=== PATIENT | male | born 1970 | race Caucasian/White ===

== ENCOUNTER 2019-11-09 12:42 | Emergency (ER) | payer MEDICARE, OTHER, SELFPAY ==
--- NOTE | 2019-11-09 12:53 | ED.URI ---
HPI - URI/Sore Throat General Chief Complaint: Headache Stated Complaint: flu symptoms [id number] Time Seen by Provider: 11/09/19 12:51 Source: patient Mode of arrival: ambulatory Limitations: no limitations History of Present Illness MD elicited complaint: fever, cough and rhinorrhea Onset (ago): day(s) (5) Consistency: constant Severity: moderate Description of mucous: clear Able to tolerate fluids by mouth: Yes Exacerbating factors: nothing Relieving factors: nothing Context: sick contacts (partner with similar illness) Associated symptoms: fever, chills and myalgias Treatments prior to arrival: none Related Data Allergies Allergy/AdvReac Type Severity Reaction Status Date / Time ibuprofen [From MOTRIN] Allergy Severe ANAPHYLAXIS Unverified 10/24/19 17:07 Review of Systems Review of Systems: Constitutional : positive Fever, positive Chills, positive fatigue, positive Malaise ENT/Mouth : no sore throat, positive runny nose Eyes: No Discharge Cardiovascular : No Chest Pain, No SOB Respiratory : positive Cough, No Sputum Gastrointestinal : No Nausea, No Vomiting, No Diarrhea Genitourinary : No Dysuria, No Urinary Frequency Musculoskeletal : positive Myalgia Skin : No rash Neuro : No Headache PMFSH Past Medical History Attestation statement: The following information was validated with the patient. Medical History (Updated 11/09/19 @ 12:54 by Felicita Aparicio DO) HTN (hypertension) Social History Social History (Updated 11/09/19 @ 12:54 by Felicita Aparicio DO) Smoking Status: Current every day smoker Use of substances other than those prescribed or required for medical reasons: No Physical Exam Vital Signs and I&O and Narrative: Vital Signs and I&O: Appearance: Alert. Oriented X3. No acute distress. Eyes: Pupils equal, round and reactive to light. Neck: Normal inspection. Neck supple. CVS: Normal heart rate and rhythm. Pulses normal. Respiratory: No respiratory distress. Breath sounds normal. Abdomen: Soft and nontender. Skin: Skin warm and dry. Normal skin color. Normal skin turgor. Extremities: No lower extremity edema. Neuro: Oriented X 3. No motor deficit. No sensory deficit. MDM - URI/Sore Throat MDM Narrative Medical decision making narrative: not toxic, well hydrated, no hypoxia, clear lungs here with viral syndrome and loss of taste COVID test ordered, given precautions to return Discharge Plan Discharge Clinical Impression: Viral syndrome Patient Disposition: Home, Self-Care Instructions: COVID-19 (Coronavirus Disease 2019) (ED) Additional Instructions: you were tested for COVID we will call you with results in 2 to 4 days, wear a mask, socially distance
[2019-11-09 13:25] VITALS: BP 156/78; PULSE 57; RESP 20; TEMP 36.6; O2SAT 99; BMI 25.9
== END 2019-11-09 13:47 | disposition home or self-care (01) ==
PROVIDERS: Emergency Provider Emergency Medicine
DX: B34.9 Viral infection, unspecified (principal); Z20.828 Contact with and (suspected) exposure to other viral communicable diseases; I10 Essential (primary) hypertension; F17.200 Nicotine dependence, unspecified, uncomplicated
CPT/HCPCS: 36415; 87635; 99283; 99284

== ENCOUNTER 2020-04-13 13:10 | Emergency (ER) | payer MEDICARE, OTHER, SELFPAY ==
--- NOTE | ~2020-04-13 | XR_ITS ---
EXAMINATION: XR FOOT, LEFT CLINICAL INFORMATION: Trauma. Mild swelling. COMPARISON: None TECHNIQUE: AP, lateral, and oblique views of the left foot. FINDINGS: There is a nondisplaced fracture of the shaft of the fifth digit proximal interphalangeal joint. No definite intra-articular extension, although this is difficult to exclude given the lack of displacement. Alignment maintained. Joint spaces are maintained. XR/XR foot LT min 3V IMPRESSION: Nondisplaced fracture of the fifth digit proximal phalanx.
[2020-04-13 13:23] VITALS: BP 158/90; PULSE 89; RESP 16; TEMP 37.2; O2SAT 98; BMI 25.8
--- NOTE | 2020-04-13 15:30 | ED.LOWEXIN ---
HPI - Extremity Injury (Lower) General Chief Complaint: Extremity Injury, Lower Stated Complaint: foot injury Time Seen by Provider: 04/13/20 15:28 Source: patient Mode of arrival: ambulatory Limitations: no limitations History of Present Illness HPI Narrative: 50 y/o male presenting with left pinky toe pain that started 3 weeks ago when he accidentally kicked a piece of furniture. He states he has been using ice and taking OTC pain meds without improvement. Pain is worse when he walks on it all day and when he puts his big leather boots on to go ride his motorcycle. He accidentally kicked another piece of furniture 4 days ago and the pain worsened. He is now walking with a limp and he is having soreness in his lower leg and knee. No trauma to lower leg or knee. MD complaint: foot injury Onset (ago): week(s) Injury: Left: toes (5th toe) Type of Injury: blunt Place: home Severity: severe Relieving factors: NSAID, cold therapy, immobilization and rest Exacerbating factors: weight bearing, movement and palpation Context: direct blow Associated symptoms: swelling and able to partially bear weight Other symptoms: none Related Data Allergies Allergy/AdvReac Type Severity Reaction Status Date / Time ibuprofen [From MOTRIN] Allergy Severe ANAPHYLAXIS Verified 04/13/20 13:27 Review of Systems Review of Systems: Constitutional: No Fever, No Chills Cardiovascular: No Chest Pain, No SOB Respiratory: No Cough Musculoskeletal: + joint pain, + Myalgias Skin: No Skin Lesions, No rash Neuro: No Weakness, No Numbness Heme/Lymph: No Bruising PMFSH Past Medical History Attestation statement: The following information was validated with the patient. Medical History HTN (hypertension) Social History Social History (Updated 11/09/19 @ 12:54 by Felicita Aparicio DO) Alcohol intake: unknown Smoking Status: Current every day smoker Advance Directives: No Advance Directives Information Provided: No Physical Exam Vital Signs: Vital Signs: Last Vital Signs Temp 99.0 F 04/13/20 13:23 Pulse 89 04/13/20 13:23 Resp 16 04/13/20 13:23 BP 158/90 H 04/13/20 13:23 Pulse Ox 98 04/13/20 13:23 Body Mass Index 25.8 Appearance: Alert. Oriented X3. No acute distress. HEENT: normal inspection CVS: Normal heart rate and rhythm. Pulses normal. Respiratory: No respiratory distress. Skin: Skin warm and dry. Normal skin color. Normal skin turgor. No rashes. Extremities: normal inspection of left foot, tender 5th toe without ecchymosis, or deformity, full ROM, NV intact distally. no calf tenderness on the left. normal left knee inspection, nontender. full ROM Neuro: Oriented X 3. No motor deficit. No sensory deficit. Ambulates with slight limp Course Course Course Narrative: 50 y/o male with blut trauma to left 5th toe x2 in the last 3 weeks. XR pending Reevaluation(s) Reevaluation #1: XR showing - Nondisplaced fracture of the fifth digit proximal phalanx. will place in post-op boot. patient has been counseled on management, will refer to ortho prn. Discharge Plan Discharge Clinical Impression: Fracture of toe Qualifiers: Encounter type: initial encounter Toe: lesser toe Fracture type: closed Phalanx: proximal Fracture alignment: nondisplaced Laterality: left Qualified Code(s): S92.515A - Nondisplaced fracture of proximal phalanx of left lesser toe(s), initial encounter for closed fracture Patient Disposition: Home, Self-Care Instructions: Toe Fracture (ED) Additional Instructions: Wear the post-op shoe to allow your toe to heal. You may bear weight as tolerated. Do not wear tight shoes or boots. Take Motrin and/or Tylenol as needed for pain. Follow up with Orthopedics. Follow up with your doctor as needed. Referrals: Umair Allison MD [Physician] - 1 week (Nondisplaced fracture of the fifth digit proximal phalanx with delayed healing) Stand Alone Forms: Work/School Release
== END 2020-04-13 16:20 | disposition home or self-care (01) ==
PROVIDERS: Emergency Provider Emergency Medicine
DX: S92.515A Nondisplaced fracture of proximal phalanx of left lesser toe(s), initial encounter for closed fracture (principal); W22.03XA Walked into furniture, initial encounter; Y93.89 Activity, other specified; Y92.013 Bedroom of single-family (private) house as the place of occurrence of the external cause; Y99.9 Unspecified external cause status
CPT/HCPCS: 73630; 99283

== ENCOUNTER 2020-06-05 19:46 | Emergency (ER) | payer MEDICARE, OTHER, SELFPAY ==
--- NOTE | ~2020-06-05 | XR_ITS ---
EXAMINATION: XR CHEST CLINICAL INFORMATION: Status post Covid with worsening shortness of breath COMPARISON: 02/25/2016 TECHNIQUE: Frontal view of the chest was obtained. FINDINGS: Compared to the prior study there's been little significant interval change. The heart size is normal. No infiltrates, effusions or lung masses are seen. XR/XR chest 1V IMPRESSION: No acute intrathoracic disease.
--- NOTE | ~2020-06-05 | CT_ITS ---
EXAMINATION: CT ANGIOGRAM OF THE CHEST WITH AND WITHOUT CONTRAST (CT PULMONARY ANGIOGRAM FOR PE) CLINICAL INFORMATION: Reason for Exam SOB, s/p Covid, L cp, elevated dimer COMPARISON: Chest x-ray 06/05/2020 TECHNIQUE: Prior to contrast administration, noncontrast localization images were obtained. Subsequently, multidetector volumetric imaging was performed from the thoracic inlet to below the diaphragms following the administration of 65 mL Omnipaque 350 intravenous contrast. No contrast reaction reported Sagittal, coronal, and MIP oblique sagittal reformatted images were obtained on the CT workstation, uploaded to PACS, and reviewed. This CT examination was performed using dose optimization techniques as appropriate, variously including the following: *Automated exposure control *Adjustment of mA and/or kV according to patient size (this includes techniques or standardized protocols for targeted exams where dose is matched to indication/reason for exam; i.e. extremities or head) *Use of iterative reconstruction technique Total exam dose-length product 312 mGy-cm FINDINGS: QUALITY OF STUDY/CONTRAST BOLUS: Satisfactory. PULMONARY ARTERIES: No central or segmental pulmonary emboli. THORACIC AORTA: No aneurysm or dissection. LUNG: Marked emphysematous changes of lungs. No acute airways disease. No suspicious lung nodules. No interstitial lung disease. PLEURA: No pleural effusion or pneumothorax. MEDIASTINUM: Normal heart size. No pericardial effusion. No hilar or mediastinal lymphadenopathy. No evidence of septal bowing or right heart strain. The thyroid is unremarkable. CHEST WALL/AXILLA: No axillary or internal mammary lymphadenopathy. OSSEOUS STRUCTURES: No acute or suspicious osseous abnormality. UPPER ABDOMEN: Unremarkable. No reflux of contrast into the hepatic veins to suggest elevated right heart pressures. CT/CT angio chest PE protocol IMPRESSION: 1. No evidence of pulmonary embolism. 2. Marked emphysematous change of lungs. No acute airways disease. VTE: negative
[2020-06-05 20:27] VITALS: BP 132/70; PULSE 79; RESP 18; TEMP 37.4; O2SAT 96; BMI 26.6
--- NOTE | 2020-06-05 21:02 | ECG_ITS ---
Test Reason : SOB Blood Pressure : / mmHG Vent. Rate : 068 BPM Atrial Rate : 068 BPM P-R Int : 154 ms QRS Dur : 094 ms QT Int : 384 ms P-R-T Axes : 060 018 055 degrees QTc Int : 408 ms Normal sinus rhythm Cannot rule out Anterior infarct , age undetermined Abnormal ECG No previous ECGs available Referred By: Brissa Hassan Electronically Signed By:GIOVANNA MCDANIEL MD
--- NOTE | 2020-06-05 21:05 | ED_ITS ---
HPI - SOB/Dyspnea General Chief Complaint: Dyspnea Stated Complaint: SOB Time Seen by Provider: 06/05/20 20:51 Source: patient Mode of arrival: ambulatory Limitations: no limitations History of Present Illness HPI Narrative: Patient comes to emergency room complaining of shortness of breath. Patient states it has been 2 weeks since he was diagnosed with COVID- 19. Patient states that in the last couple of days, he has noticed that his breathing has become more labored, feels short of breath, and now also compla ining of bilateral back pain. Patient states he has been coughing, yesterday had multiple episodes of vomiting, no diarrhea. Patient denies any previous history of COPD or asthma. Patient denies chest pain, no abdominal pain. MD elicited complaint: shortness of breath Related Data Allergies Allergy/AdvReac Type Severity Reaction Status Date / Time ibuprofen [From MOTRIN] Allergy Severe ANAPHYLAXIS Verified 06/05/20 20:26 Review of Systems Review of Systems: Constitutional : No Weight loss, No Fever, No Chills, No Night Sweats, complaining of fatigue ENT/Mouth : No Hearing loss, No Ear Pain but complaining of ear fullness on the left side, mild Nasal Congestion, No Sinus Pain, No Hoarseness, No sore throat, No Rhinorrhea, No Swallowing Difficulty Eyes: No Eye Pain, No Swelling, No Redness, No Foreign Body, No Discharge, No Vision Changes Cardiovascular : Left-sided chest pain, No SOB, complaining of constant shortness of breath No Orthopnea, No Edema, No Palpitations Respiratory : Complaining of Cough with mild Sputum, No Wheezing, No Smoke Exposure, complaining of dyspnea Gastrointestinal : No Nausea, yesterday had multiple episodes of vomiting, No Diarrhea, No Constipation, No abdominal Pain, No Hematochezia, No Melena Genitourinary : no irregular bleeding, No Dysuria, No Urinary Frequency, No Dwain turia, No Urinary Incontinence, No Urgency, No Flank Pain, No Urinary Flow Changes, No Hesitancy Musculoskeletal : No joint pain, No Myalgias, No Joint Swelling Skin : No Skin Lesions, No rash Neuro : No Weakness, No Numbness, No Paresthesias, No Loss of Consciousness, No Dizziness, No Headache Psych : No Anxiety/Panic, No Depression, No SI/HI/AH/VH, No Social Issues, Heme/Lymph: No Bruising, No Bleeding,No Lymphadenopathy Endocrine : No Polyuria, No Polydipsia, No Temperature Intolerance [facility] Past Medical History Medical History HTN (hypertension) Social History Social History (Updated 11/09/19 @ 12:54 by Felicita Aparicio DO) Alcohol intake: unknown Smoking Status: Current every day smoker Advance Directives: No Advance Directives Information Provided: No Physical Exam Vital Signs: Vital Signs: Last Vital Signs Temp 98.6 F 06/05/20 21:30 Pulse 66 06/06/20 00:15 Resp 17 06/06/20 00:15 BP 139/82 06/06/20 00:15 Pulse Ox 97 06/06/20 00:15 Body Mass Index 26.6 Appearance: Alert. Oriented X3. No acute distress. Eyes: Pupils equal, round and reactive to light. ENT: Pharynx normal. Normal tympanic membranes bilaterally, no fluid or erythema. Neck: Normal inspection. Neck supple. No lymph nodes noted. No crepitus CVS: Normal heart rate and rhythm. Pulses normal. Normal S1 and S2 Respiratory: No respiratory distress. Breath sounds normal. No Wheezing. No rales Abdomen: Soft and nontender. No rigidity. No distention. good BS x4 Skin: Skin warm and dry. Normal skin color. Normal skin turgor. Extremities: No lower extremity edema. No lower extremity edema. No Lacerations. No Rash Neuro: Oriented X 3. No motor deficit. No sensory deficit. Moving all extermities. No slurred speech. Course Course Course Narrative: I discussed with the patient that his chest x-ray is normal, however his D-dimer is elevated and his symptoms are concerning for a PE. CT scan for PE pending. PE study negative for PE. Patient was ambulated, oxygen saturation 96% and above, no shortness of breath. Patient's pain likely secondary to pleurisy. MDM - SOB/Dyspnea Lab Data Result diagrams: 06/05/20 21:24 06/05/20 21:24 Labs: Lab Results 06/05/20 06/05/20 06/05/20 Range/Units 21:24 21:24 21:24 WBC 11.8 H (4.8-10.8) X10*3/uL RBC 4.51 L (4.60-5.80) X10*6/uL Hgb 13.8 L (14.0-18.0) g/dl Hct 40.5 L (42-52) % MCV 89.8 (80-98) fL MCH 30.6 (27.0-33.0) pg MCHC 34.1 (31.0-36.0) g/dl RDW 12.3 (11.0-16.0) % Plt Count 181 (160-400) X10*3/uL MPV 12.7 H (9.4-12.4) fL Immature Gran % (Auto) 0.7 H (0.0-0.4) % Neut % (Auto) 54.9 (45-73) % Lymph % (Auto) 30.0 (20-40) % [place] % (Auto) 10.9 (2-11) % Eos % (Auto) 3.0 (0-4) % Baso % (Auto) 0.5 (0-2) % Lymph # (Auto) 3.5 (1.2-4.9) X10*3/uL [place] # (Auto) 1.3 H (0.1-1.2) X10*3/uL Eos # (Auto) 0.4 (0.0-0.4) X10*3/uL Baso # (Auto) 0.1 (0.0-0.2) X10*3/uL Abs Immat Gran (auto) 0.08 H (0.00-0.03) X10*3/uL Absolute Neuts (auto) 6.5 (2.0-8.3) X10*3/uL Absolute Nucleated RBC 0.000 (0.0-0.012) X10*3/uL Nucleated RBC % (auto) 0.0 (0.0-0.2) /100WBC D-Dimer 683 NG/ML Sodium 138 (135-145) mmol/L Potassium 3.7 (3.3-5.1) mmol/L Chloride 104 (96-108) mmol/L Carbon Dioxide 24 (22-29) mmol/L Anion Gap 14 (12-20) BUN 11 (9-16) mg/dL Creatinine 1.03 (0.5-1.4) mg/dL Estim Creat Clear Calc 80.2 Estimated GFR > 60 Random Glucose 181 H (60-115) mg/dL Calcium 9.0 (8.4-10.2) mg/dL Total Bilirubin 0.6 (0.0-1.0) mg/dL Direct Bilirubin 0.2 (0.0-0.5) mg/dL AST 7 (5-37) U/L ALT 12 (0-40) U/L Alkaline Phosphatase 59 (39-117) U/L Troponin I High Sens (<3.5-35.0) ng/L B-Natriuretic Peptide (<100) pg/mL Total Protein 6.9 (6.5-8.0) g/dL Albumin 3.9 (3.5-5.0) g/dL Urine Color Urine Appearance Urine pH (5.0-8.0) Ur Specific [place] (1.005-1.025) Urine Protein (NEG-TRACE) MG/DL Urine Glucose (UA) (NEG) MG/DL Urine Ketones (NEG) MG/DL Urine Blood (NEG) Urine Nitrite (NEG) Ur Leukocyte Esterase (NEG) Urine RBC (0) /HPF Urine WBC (0-4) /HPF Ur Squamous Epith Cells /LPF Urine Bacteria /LPF Urine Mucus /LPF Coronavirus (PCR) (Negative) Influenza Type A (PCR) (Negative) Influenza Type B (PCR) (Negative) RSV RNA Qual (PCR) (Negative) 06/05/20 06/05/20 06/05/20 Range/Units 21:24 21:24 23:07 WBC (4.8-10.8) X10*3/uL RBC (4.60-5.80) X10*6/uL Hgb (14.0-18.0) g/dl Hct (42-52) % MCV (80-98) fL MCH (27.0-33.0) pg MCHC (31.0-36.0) g/dl RDW (11.0-16.0) % Plt Count (160-400) X10*3/uL MPV (9.4-12.4) fL Immature Gran % (Auto) (0.0-0.4) % Neut % (Auto) (45-73) % Lymph % (Auto) (20-40) % [place] % (Auto) (2-11) % Eos % (Auto) (0-4) % Baso % (Auto) (0-2) % Lymph # (Auto) (1.2-4.9) X10*3/uL [place] # (Auto) (0.1-1.2) X10*3/uL Eos # (Auto) (0.0-0.4) X10*3/uL Baso # (Auto) (0.0-0.2) X10*3/uL Abs Immat Gran (auto) (0.00-0.03) X10*3/uL Absolute Neuts (auto) (2.0-8.3) X10*3/uL Absolute Nucleated RBC (0.0-0.012) X10*3/uL Nucleated RBC % (auto) (0.0-0.2) /100WBC D-Dimer NG/ML Sodium (135-145) mmol/L Potassium (3.3-5.1) mmol/L Chloride (96-108) mmol/L Carbon Dioxide (22-29) mmol/L Anion Gap (12-20) BUN (9-16) mg/dL Creatinine (0.5-1.4) mg/dL Estim Creat Clear Calc Estimated GFR Random Glucose (60-115) mg/dL Calcium (8.4-10.2) mg/dL Total Bilirubin (0.0-1.0) mg/dL Direct Bilirubin (0.0-0.5) mg/dL AST (5-37) U/L ALT (0-40) U/L Alkaline Phosphatase (39-117) U/L Troponin I High Sens < 3.5 (<3.5-35.0) ng/L B-Natriuretic Peptide 26 (<100) pg/mL Total Protein (6.5-8.0) g/dL Albumin (3.5-5.0) g/dL Urine Color MANDO Urine Appearance CLEAR Urine pH 5.5 (5.0-8.0) Ur Specific [place] >= 1.030 H (1.005-1.025) Urine Protein 1+ H (NEG-TRACE) MG/DL Urine Glucose (UA) NEG (NEG) MG/DL Urine Ketones 5 (NEG) MG/DL Urine Blood NEG (NEG) Urine Nitrite NEG (NEG) Ur Leukocyte Esterase NEG (NEG) Urine RBC 0 (0) /HPF Urine WBC 0-2 (0-4) /HPF Ur Squamous Epith Cells 1+ /LPF Urine Bacteria NONE /LPF Urine Mucus 2+ /LPF Coronavirus (PCR) POSITIVE A (Negative) Influenza Type A (PCR) NEGATIVE (Negative) Influenza Type B (PCR) NEGATIVE (Negative) RSV RNA Qual (PCR) NEGATIVE (Negative) Imaging Data Chest x-ray: Radiologist's impression: Compared to the prior study there's been little significant interval change. The heart size is normal. No infiltrates, effusions or lung masses are seen. XR/XR chest 1V IMPRESSION: No acute intrathoracic disease. CTA for PE: Radiologist's impression: FINDINGS: QUALITY OF STUDY/CONTRAST BOLUS: Satisfactory. PULMONARY ARTERIES: No central or segmental pulmonary emboli. THORACIC AORTA: No aneurysm or dissection. LUNG: Marked emphysematous changes of lungs. No acute airways disease. No suspicious lung nodules. No interstitial lung disease. PLEURA: No pleural effusion or pneumothorax. MEDIASTINUM: Normal heart size. No pericardial effusion. No hilar or mediastinal lymphadenopathy. No evidence of septal bowing or right heart strain. The thyroid is unremarkable. CHEST WALL/AXILLA: No axillary or internal mammary lymphadenopathy. OSSEOUS STRUCTURES: No acute or suspicious osseous abnormality. UPPER ABDOMEN: Unremarkable. No reflux of contrast into the hepatic veins to suggest elevated right heart pressures. CT/CT angio chest PE protocol IMPRESSION: 1. No evidence of pulmonary embolism. 2. Marked emphysematous change of lungs. No acute airways disease. VTE: negative Discharge Plan Discharge Clinical Impression: Pleurisy Patient Disposition: Home, Self-Care Instructions: Pleurisy (ED) Additional Instructions: Please follow-up with your primary care physician. On CT scan it was noted that you have emphysema. He will likely need pulmonary function tests to diagnosed COPD. Please follow-up with your primary care physician tomorrow. If you have any worsening or new symptoms, please return to the emergency room or call 911
[2020-06-05 21:30] VITALS: BP 132/61; PULSE 66; RESP 16; TEMP 37; O2SAT 96
[2020-06-05 21:33] LABS: Basophils Absolute Auto 0.1 X10*3/uL (0.0-0.2); Basophils Percent Auto 0.5 % (0-2); Eosinophils Absolute Auto 0.4 X10*3/uL (0.0-0.4); Hematocrit 40.5 % (42-52); Hemoglobin 13.8 g/dl (14.0-18.0); Imm Gran Abs Auto 0.08 X10*3/uL (0.00-0.03); Imm Gran Pct Auto 0.7 % (0.0-0.4); Lymphocytes Absolute Auto 3.5 X10*3/uL (1.2-4.9); MANUAL DIFF FLAG NO; Mean Corpuscular HGB Conc 34.1 g/dl (31.0-36.0); Mean Corpuscular Hemoglobin 30.6 pg (27.0-33.0); Mean Corpuscular Volume 89.8 fL (80-98); Mean Platelet Volume 12.7 fL (9.4-12.4); Monocytes Absolute Auto 1.3 X10*3/uL (0.1-1.2); Monocytes Percent Auto 10.9 % (2-11); Neutrophils Absolute Auto 6.5 X10*3/uL (2.0-8.3); Neutrophils Percent Auto 54.9 % (45-73); Platelet Count 181 X10*3/uL (160-400); Red Blood Count 4.51 X10*6/uL (4.60-5.80); Red Cell Distribution Width 12.3 % (11.0-16.0); White Blood Count 11.8 X10*3/uL (4.8-10.8)
[2020-06-05 21:42] LABS: D Dimer 683 NG/ML
[2020-06-05 22:09] LABS: Alanine Aminotransferase 12 U/L (0-40); Albumin Level 3.9 g/dL (3.5-5.0); Alkaline Phosphatase 59 U/L (39-117); Anion Gap 14 (12-20); Aspartate Amino Transferase 7 U/L (5-37); Bilirubin Direct 0.2 mg/dL (0.0-0.5); Bilirubin Total 0.6 mg/dL (0.0-1.0); Blood Urea Nitrogen 11 mg/dL (9-16); Carbon Dioxide 24 mmol/L (22-29); Chloride 104 mmol/L (96-108); Creatinine Clr Calc Pharmacy 80.2; Estimated Glomerular Filt Rate > 60; Glucose Random 181 mg/dL (60-115); Potassium 3.7 mmol/L (3.3-5.1); Sodium 138 mmol/L (135-145); Total Protein 6.9 g/dL (6.5-8.0)
[2020-06-05 22:11] LABS: B Type Natriuretic Peptide 26 pg/mL (<100); Troponin-I High Sensitivity < 3.5 ng/L (<3.5-35.0)
[2020-06-05 22:16] LABS: Influenza A PCR NEGATIVE (Negative); Influenza B PCR NEGATIVE (Negative); Resp Syncy Virus RNA Qual PCR NEGATIVE (Negative)
[2020-06-05 22:24] LABS: SARS COV2 PCR INHOUSE POSITIVE (Negative)
[2020-06-05 23:19] LABS: Appearance Urine CLEAR; Color Urine AMBER; Glucose Urine UA NEG (NEG); Leukocyte Esterase Urine NEG (NEG); Nitrite Urine NEG (NEG); PH 5.5 (5.0-8.0); Specific Gravity - Urine >= 1.030 (1.005-1.025); Urine Blood NEG (NEG); Urine Ketones 5 MG/DL (NEG); Urine Protein 1+ MG/DL (NEG-TRACE)
[2020-06-05 23:24] LABS: Mucus Urine 2+ /LPF; RBC Urine 0 /HPF (0); Squamous Epithelial Cell Urine 1+ /LPF; WBC Urine 0-2 /HPF (0-4)
[2020-06-05] MEDS: iohexoL 350 MG/ML 100 ML INFUS..BTL IV (23:25)
[2020-06-06 00:15] VITALS: BP 139/82; PULSE 66; RESP 17; O2SAT 97
--- NOTE | 2020-06-06 00:21 | PC.NURSE ---
PT AMBULATORY IN HALLWAY, DENIES DYSPNEA AND SPO2 NEVER DROPPED BELOW 96%.
== END 2020-06-06 01:19 | disposition home or self-care (01) ==
PROVIDERS: Emergency Provider Emergency Medicine
DX: R09.1 Pleurisy (principal); Z20.822 Contact with and (suspected) exposure to COVID-19; R11.10 Vomiting, unspecified; J43.9 Emphysema, unspecified
CPT/HCPCS: 0241U; 36415; 71045; 71275; 80048; 80076; 81001; 83880; 84484; 85025; 85379; 93005; 99284; Q9967

== ENCOUNTER 2020-07-16 15:48 | Observation (INO) | payer MEDICARE, OTHER, SELFPAY ==
--- NOTE | 2020-07-16 | ECG_ITS ---
Test Reason : DIZZINESS Blood Pressure : / mmHG Vent. Rate : 075 BPM Atrial Rate : 075 BPM P-R Int : 148 ms QRS Dur : 094 ms QT Int : 382 ms P-R-T Axes : 036 011 057 degrees QTc Int : 426 ms Normal sinus rhythm Normal ECG When compared with ECG of 05-JUN-2020 21:25, No significant change was found Referred By: Generic ED Physician Electronically Signed By:GIOVANNA MCDANIEL MD
--- NOTE | ~2020-07-16 | CT_ITS ---
EXAMINATION: CT ANGIOGRAM NECK AND HEAD CLINICAL INFORMATION: Right facial numbness, right arm weakness, now resolved COMPARISON: None. TECHNIQUE: Initial noncontrast head CT was performed. Test bolus sequences followed by intravenous administration 70 mL of Omnipaque 350. Helical imaging was performed in the axial plane from the thoracic inlet to the skull vertex. Delayed postcontrast imaging of the head was also performed. The data was processed at the nuclear cardiology technologist's workstation for generation of MIP sequences. Angled MIPs and volume rendered reformatted images were also generated at an offline 3D workstation. Stenoses are assessed in accordance with NASCET criteria unless otherwise indicated. DOSE LOWERING TECHNIQUES: This CT examination was performed using dose optimization techniques as appropriate, variously including the following: - Automated exposure control - Adjustment of mA and/or kV according to patient size (this includes techniques or standardized protocols for targeted exams were dose is matched to indication/reason for exam; i.e. extremities or head) - Use of iterative reconstruction technique DLP: 2478 mGy-cm FINDINGS: Neck CTA: There is a classic 3 vessel branching pattern of the aortic arch. Mild calcification along the aortic arch. No significant stenosis at the branch origins. The proximal right vertebral artery appears diminutive, before receiving collateral flow in the common larger in caliber at the level of C4-C5. There is moderate narrowing of the right vertebral artery at C4-C5 in the region of facet arthropathy. The left vertebral artery is dominant and widely patent along its cervical course. Both vertebral arteries are widely patent throughout their extracranial cervical course. There are mild calcifications at the bilateral common carotid artery bifurcations without significant stenosis. There are also calcifications along the proximal right and left internal carotid arteries resulting in less than 50% luminal narrowing. Remainder of the internal carotid arteries are widely patent. Brain CTA: The intradural vertebral arteries are patent, and the left vertebral artery is dominant. Right vertebral artery appears to end in PICA. The basilar artery and superior cerebellar arteries are patent. Bilateral posterior cerebral arteries are patent. Normal appearance of the intradural internal carotid arteries without focal stenosis. Normal appearance of the anterior cerebral and middle cerebral arteries without focal occlusion or stenosis. Normal anterior communicating artery. Normal arborization of the middle cerebral arteries. CT Head: No intracranial mass, hemorrhage, extra-axial collection, or midline shift. The guerra-white matter differentiation is preserved. No pathologic intra-axial enhancement or regional oligemia. No hydrocephalus. Bilateral mastoid air cells are partially opacified. There is partial opacification of the bilateral ethmoid air cells and mild mucosal thickening of the remaining paranasal sinuses. CT Neck: The thyroid gland and remaining cervical soft tissues are normal in appearance. There is intervertebral disc space narrowing and endplate osteophytosis throughout the mid to lower cervical spine. Upper Chest: Lung apices demonstrate emphysema. CT/CT angio head neck IMPRESSION: 1. Calcifications along the proximal right and left internal carotid arteries with less than 50% luminal narrowing. 2. Moderate narrowing of the right vertebral artery at the C4-C5 level. 3. No large vessel occlusion or significant stenosis in the intracranial circulation. 4. No acute intracranial findings. 5. Partial opacification of the paranasal sinuses and mastoid air cells bilaterally.
[2020-07-16 16:00] VITALS: BP 134/84; PULSE 84; RESP 18; TEMP 36.6; O2SAT 95; BMI 26.6
[2020-07-16 18:32] LABS: MANUAL DIFF FLAG NO
[2020-07-16 18:39] LABS: Basophils Absolute Auto 0.1 X10*3/uL (0.0-0.2); Basophils Percent Auto 1.4 % (0-2); Eosinophils Absolute Auto 0.6 X10*3/uL (0.0-0.4); Eosinophils Percent Auto 6.9 % (0-4); Hematocrit 44.9 % (42-52); Hemoglobin 15.2 g/dl (14.0-18.0); Imm Gran Abs Auto 0.05 X10*3/uL (0.00-0.03); Imm Gran Pct Auto 0.6 % (0.0-0.4); Lymphocytes Absolute Auto 2.8 X10*3/uL (1.2-4.9); Lymphocytes Percent Auto 31.9 % (20-40); Mean Corpuscular HGB Conc 33.9 g/dl (31.0-36.0); Mean Corpuscular Hemoglobin 31.1 pg (27.0-33.0); Mean Corpuscular Volume 91.8 fL (80-98); Monocytes Absolute Auto 0.8 X10*3/uL (0.1-1.2); Monocytes Percent Auto 8.8 % (2-11); Neutrophils Absolute Auto 4.5 X10*3/uL (2.0-8.3); Neutrophils Percent Auto 50.4 % (45-73); Platelet Count 177 X10*3/uL (160-400); Red Blood Count 4.89 X10*6/uL (4.60-5.80); Red Cell Distribution Width 13.5 % (11.0-16.0); White Blood Count 8.9 X10*3/uL (4.8-10.8)
[2020-07-16 19:04] LABS: Alanine Aminotransferase 19 U/L (0-40); Albumin Level 4.3 g/dL (3.5-5.0); Alkaline Phosphatase 54 U/L (39-117); Anion Gap 14 (12-20); Aspartate Amino Transferase 12 U/L (5-37); Bilirubin Total 0.5 mg/dL (0.0-1.0); Calcium 9.6 mg/dL (8.4-10.2); Carbon Dioxide 26 mmol/L (22-29); Chloride 104 mmol/L (96-108); Estimated Glomerular Filt Rate > 60; Glucose Random 173 mg/dL (60-115); Potassium 4.7 mmol/L (3.3-5.1); Sodium 139 mmol/L (135-145); Total Protein 7.4 g/dL (6.5-8.0)
[2020-07-16 19:06] LABS: Troponin-I High Sensitivity < 3.5 ng/L (<3.5-35.0)
[2020-07-16 19:11] LABS: Blood Urea Nitrogen 12 mg/dL (9-16)
[2020-07-16 22:31] VITALS: BP 202/95; PULSE 62; RESP 18; O2SAT 100
--- NOTE | 2020-07-16 22:41 | ED_ITS ---
HPI - General Adult General Chief complaint: Dizziness Stated complaint: chest pain, copd Time Seen by Provider: 07/16/20 22:18 Source: patient Mode of arrival: ambulatory Limitations: no limitations History of Present Illness HPI narrative: Patient comes emergency room complaining of right-sided facial numbness, and right arm weakness. Patient states this started approximately around 14:00. Patient states that initially he had right eye blurry vision, then the face started feeling numb and tingly on the right side, then he could not move his right arm. Patient states this is the 1st time it happens. The a rm weakness lasted for about 15 minutes, patient states that this time his face feels better but he still feels a bit numb and his tongue feels heavy Related Data Allergies Allergy/AdvReac Type Severity Reaction Status Date / Time ibuprofen [From MOTRIN] Allergy Severe ANAPHYLAXIS Verified 06/05/20 20:26 Review of Systems Review of Systems: Constitutional : No Weight loss, No Fever, No Chills, No Night Sweats, No Fatigue, No Malaise ENT/Mouth : No Hearing loss, No Ear Pain, No Nasal Congestion, No Sinus Pain, No Hoarseness, No sore throat, No Rhinorrhea, No Swallowing Difficulty Eyes: No Eye Pain, No Swelling, No Redness, No Foreign Body, No Discharge, No Vision Changes Cardiovascular : No Chest Pain, No SOB, No Dyspnea on Exertion, No Orthopnea, No Edema, No Palpitations Respiratory : No Cough, No Sputum, No Wheezing, No Smoke Exposure, No Dyspnea Gastrointestinal : No Nausea, No Vomiting, No Diarrhea, No Constipation, No abdominal Pain, No Hematochezia, No Melena Genitourinary : no irregular bleeding, No Dysuria, No Urinary Frequency, No Hematuria, No Urinary Incontinence, No Urgency, No Flank Pain, No Urinary Flow Changes, No Hesitancy Musculoskeletal : No joint pain, No Myalgias, No Joint Swelling Skin : No Skin Lesions, No rash Neuro : Complaining of 20 minutes of right arm weakness, right-sided facial numbness for about 8 hours , blurry vision in the right eye, No Loss of Consciousness, No Dizziness, No Headache Psych : No Anxiety/Panic, No Depression, No SI/HI/AH/VH, No Social Issues, Heme/Lymph: No Bruising, No Bleeding,No Lymphadenopathy Endocrine : No Polyuria, No Polydipsia, No Temperature Intolerance PMFSH Past Medical History Medical History HTN (hypertension) Social History Social History (Updated 11/09/19 @ 12:54 by Felicita Apaircio DO) Alcohol intake: former Patient Tobacco Use Status: Current everyday Tobacco user Smoked in Last 30 Days: Yes Use of substances other than those prescribed or required for medical reasons: Yes Substance Use Type: Crack/Cocaine and Marijuana Substance Use Frequency: Weekly Advance Directives: No Advance Directives Information Provided: No Physical Exam Vital Signs: Vital Signs: Last Vital Signs Temp 97.9 F 07/16/20 16:00 Pulse 62 07/16/20 22:31 Resp 18 07/16/20 22:31 BP 202/95 H 07/16/20 22:31 Pulse Ox 100 07/16/20 22:31 Body Mass Index 26.6 Appearance: Alert. Oriented X3. No acute distress. Eyes: Pupils equal, round and reactive to light. ENT: Pharynx normal. Neck: Normal inspection. Neck supple. No lymph nodes noted. No crepitus CVS: Normal heart rate and rhythm. Pulses normal. Normal S1 and S2 Respiratory: No respiratory distress. Breath sounds normal. No Wheezing. No rales Abdomen: Soft and nontender. No rigidity. No distention. good BS x4 Skin: Skin warm and dry. Normal skin color. Normal skin turgor. Extremities: No lower extremity edema. No lower extremity edema. No Lacerations. No Rash Neuro: Oriented X 3. No motor deficit. No sensory deficit. Moving all ex termities. No slurred speech. NIH Stroke Scale Level of Consciousness: Alert Level of Consciousness Questions: Answers both questions correctly Level of Consciousness Commands: Performs both tasks correctly Best Gaze: Normal Visual: No visual loss Facial Palsy: Normal Motor Arm (Right): No drift Motor Arm (Left): No drift Motor Leg (Right): No drift Motor Leg (Left): No drift Limb Ataxia: Absent Sensory: Normal Best Language: No aphasia Dysarthia: Normal Extinction and Inattention: No abnormality Score: 0 Course Course Course Narrative: Patient has no motor/neurological deficits, however he still complaining of facial numbness/tingling and tongue heaviness. Patient does not have slurred speech Patient up for sure is 130/63, that is without any medications. I discussed with the patient he likely had a TIA, patient will be admitted for further workup. At this time, as mentioned above, patient regained full strength in his extremities, however he still feels that today the right side of his face is numb and tingly I discussed the patient with Dr. Gaona, patient being admitted. Medical Decision Making Lab Data Result diagrams: 07/16/20 16:29 07/16/20 16:29 Labs: Lab Results 07/16/20 07/16/20 07/16/20 Range/Units 16:29 16:29 16:29 WBC 8.9 (4.8-10.8) X10*3/uL RBC 4.89 (4.60-5.80) X10*6/uL Hgb 15.2 (14.0-18.0) g/dl Hct 44.9 (42-52) % MCV 91.8 (80-98) fL MCH 31.1 (27.0-33.0) pg MCHC 33.9 (31.0-36.0) g/dl RDW 13.5 (11.0-16.0) % Plt Count 177 (160-400) X10*3/uL MPV 13.0 H (9.4-12.4) fL Immature Gran % (Auto) 0.6 H (0.0-0.4) % Neut % (Auto) 50.4 (45-73) % Lymph % (Auto) 31.9 (20-40) % Winston % (Auto) 8.8 (2-11) % Eos % (Auto) 6.9 H (0-4) % Baso % (Auto) 1.4 (0-2) % Lymph # (Auto) 2.8 (1.2-4.9) X10*3/uL Winston # (Auto) 0.8 (0.1-1.2) X10*3/uL Eos # (Auto) 0.6 H (0.0-0.4) X10*3/uL Baso # (Auto) 0.1 (0.0-0.2) X10*3/uL Abs Immat Gran (auto) 0.05 H (0.00-0.03) X10*3/uL Absolute Neuts (auto) 4.5 (2.0-8.3) X10*3/uL Absolute Nucleated RBC 0.000 (0.0-0.012) X10*3/uL Nucleated RBC % (auto) 0.0 (0.0-0.2) /100WBC Sodium 139 (135-145) mmol/L Potassium 4.7 D (3.3-5.1) mmol/L Chloride 104 (96-108) mmol/L Carbon Dioxide 26 (22-29) mmol/L Anion Gap 14 (12-20) BUN 12 (9-16) mg/dL Creatinine 1.03 (0.5-1.4) mg/dL Estim Creat Clear Calc 83.0 Estimated GFR > 60 Random Glucose 173 H (60-115) mg/dL Calcium 9.6 D (8.4-10.2) mg/dL Total Bilirubin 0.5 (0.0-1.0) mg/dL AST 12 D (5-37) U/L ALT 19 (0-40) U/L Alkaline Phosphatase 54 (39-117) U/L Troponin I High Sens < 3.5 (<3.5-35.0) ng/L Total Protein 7.4 (6.5-8.0) g/dL Albumin 4.3 (3.5-5.0) g/dL COVID-19 ([facility]AY) (Negative) COVID-19 Clin Com 07/16/20 Range/Units 22:57 WBC (4.8-10.8) X10*3/uL RBC (4.60-5.80) X10*6/uL Hgb (14.0-18.0) g/dl Hct (42-52) % MCV (80-98) fL MCH (27.0-33.0) pg MCHC (31.0-36.0) g/dl RDW (11.0-16.0) % Plt Count (160-400) X10*3/uL MPV (9.4-12.4) fL Immature Gran % (Auto) (0.0-0.4) % Neut % (Auto) (45-73) % Lymph % (Auto) (20-40) % Winston % (Auto) (2-11) % Eos % (Auto) (0-4) % Baso % (Auto) (0-2) % Lymph # (Auto) (1.2-4.9) X10*3/uL Winston # (Auto) (0.1-1.2) X10*3/uL Eos # (Auto) (0.0-0.4) X10*3/uL Baso # (Auto) (0.0-0.2) X10*3/uL Abs Immat Gran (auto) (0.00-0.03) X10*3/uL Absolute Neuts (auto) (2.0-8.3) X10*3/uL Absolute Nucleated RBC (0.0-0.012) X10*3/uL Nucleated RBC % (auto) (0.0-0.2) /100WBC Sodium (135-145) mmol/L Potassium (3.3-5.1) mmol/L Chloride (96-108) mmol/L Carbon Dioxide (22-29) mmol/L Anion Gap (12-20) BUN (9-16) mg/dL Creatinine (0.5-1.4) mg/dL Estim Creat Clear Calc Estimated GFR Random Glucose (60-115) mg/dL Calcium (8.4-10.2) mg/dL Total Bilirubin (0.0-1.0) mg/dL AST (5-37) U/L ALT (0-40) U/L Alkaline Phosphatase (39-117) U/L Troponin I High Sens (<3.5-35.0) ng/L Total Protein (6.5-8.0) g/dL Albumin (3.5-5.0) g/dL COVID-19 (SANJAY) Negative (Negative) COVID-19 Clin Com See Note Imaging Data CTA of head and neck: Radiologist's impression: FINDINGS: Neck CTA: There is a classic 3 vessel branching pattern of the aortic arch. Mild calcification along the aortic arch. No significant stenosis at the branch origins. The proximal right vertebral artery appears diminutive, before receiving collateral flow in the common larger in caliber at the level of C4-C5. There is moderate narrowing of the right vertebral artery at C4-C5 in the region of facet arthropathy. The left vertebral artery is dominant and widely patent along its cervical course. Both vertebral arteries are widely patent throughout their extracranial cervical course. There are mild calcifications at the bilateral common carotid artery bifurcations without significant stenosis. There are also calcifications along the proximal right and left internal carotid arteries resulting in less than 50% luminal narrowing. Remainder of the internal carotid arteries are widely patent. Brain CTA: The intradural vertebral arteries are patent, and the left vertebral artery is dominant. Right vertebral artery appears to end in PICA. The basilar artery and superior cerebellar arteries are patent. Bilateral posterior cerebral arteries are patent. Normal appearance of the intradural internal carotid arteries without focal stenosis. Normal appearance of the anterior cerebral and middle cerebral arteries without focal occlusion or stenosis. Normal anterior communicating artery. Normal arborization of the middle cerebral arteries. CT Head: No intracranial mass, hemorrhage, extra-axial collection, or midline shift. The guerra-white matter differentiation is preserved. No pathologic intra-axial enhancement or regional oligemia. No hydrocephalus. Bilateral mastoid air cells are partially opacified. There is partial opacification of the bilateral ethmoid air cells and mild mucosal thickening of the remaining paranasal sinuses. CT Neck: The thyroid gland and remaining cervical soft tissues are normal in appearance. There is intervertebral disc space narrowing and endplate osteophytosis throughout the mid to lower cervical spine. Upper Chest: Lung apices demonstrate emphysema. CT/CT angio head neck IMPRESSION: 1. Calcifications along the proximal right and left internal carotid arteries with less than 50% luminal narrowing. 2. Moderate narrowing of the right vertebral artery at the C4-C5 level. 3. No large vessel occlusion or significant stenosis in the intracranial circulation. 4. No acute intracranial findings. 5. Partial opacification of the paranasal sinuses and mastoid air cells bilaterally. ECG Data Attestation: I personally reviewed and interpreted this ECG as follows: (Sinus rhythm, heart rate 75, no ST segment depression or elevation, no T-wave inversion, QTC 426) Discharge Plan Discharge Clinical Impression: Transient cerebral ischemia Patient Disposition: Admitted As Inpatient
[2020-07-16 23:17] LABS: COVID-19 Test Negative (Negative)
[2020-07-16] MEDS: iohexoL 350 MG/ML 100 ML INFUS..BTL 70 ML IV (23:44)
--- NOTE | 2020-07-17 00:40 | P.HPHOSP_ITS ---
History of Present Illness Date of Service: 07/17/20 Chief Complaint: Right side of the face numbness 50-year-old male with a past medical history of COVID 19 positive, history of alcohol abuse, tobacco dependence presented to the hospital with a chief complaint of right side of the face numbness and tingling. Patient reports the symptoms started around 2:00 p.m.. At the same time he noticed that he was not able to use his right upper extremity; the right upper extremity weakness lasted for about 20 minutes. Subsequently took a shower. Home but the right side of the face numbness and tingling still persisted hence decided to come to the ER for further evaluation. Denies any chest pain palpitations lightheadedness dizziness. Denies any fever chills cough. Denies any recent travel sick contacts. Denies any GI or symptoms. Review of all other systems is negative except mentioned above ER course: Per ER team patient exam was nonfocal but patient still complains of right face numbness and tingling. CT head and CT angio head and neck showed no acute findings. Patient's NIHSS was 0. Patient blood pressure was 202/95 which improved to 100 30/63 without any intervention. Admitted to the hospital for further management. [facility] Medical History HTN (hypertension) Social History (Updated 11/09/19 @ 12:54 by Felicita Aparicio DO) Household Members: Significant Other Housing: House Do you presently have visiting nurse or other home services: No Alcohol intake: former Patient Tobacco Use Status: Current everyday Tobacco user Tobacco use type: Cigarette and Cigar Cigarette Packs Per Day: 1 Cigarettes Per Day: 20.0 Smoked in Last 30 Days: Yes Patient Interested in Nicotine Replacement: Yes Use of substances other than those prescribed or required for medical reasons: Yes Substance Use Type: Marijuana Substance Use Type Other:: denies crack Substance Use Frequency: Weekly Currently Displaying Signs/Symptoms of Drug Intoxication Withdrawal: No Have you been hit, kicked, punched, or otherwise hurt by someone within the past year? If so, by whom?: No Is there a partner from a previous relationship who is making you feel unsafe now?: No Advance Directives: No Advance Directives Information Provided: No Do you have thoughts of harming others: None Do you have a plan to hurt others: No Plan Recently lost weight without trying: No Nutrition Risks: No Nutritional Risk service: No Meds Allergies Allergy/AdvReac Type Severity Reaction Status Date / Time ibuprofen [From MOTRIN] Allergy Severe ANAPHYLAXIS Verified 06/05/20 20:26 Active Medications: Current Medications Generic Name Dose Route Start Last Admin Trade Name Freq PRN Reason Stop Dose Admin Acetaminophen 650 mg 07/17/20 00:34 Acetaminophen 325 Mg Tablet PO Q6H PRN Pain, Mild (Pain Scale 1-3) Aspirin 81 mg 07/17/20 09:00 Aspirin Enteric Coated 81 Mg Tablet.Dr PO DAILY [facility] Atorvastatin Calcium 80 mg 07/17/20 09:00 Atorvastatin Calcium 80 Mg Tablet PO DAILY [facility] Dextrose/Sodium Chloride 1,000 mls @ 100 mls/hr 07/17/20 00:45 D51/2ns IVCONT .Q10H [facility] Nicotine 14 mg 07/17/20 00:37 Nicotine 14 Mg Patch.Td24 TRANSDERMA 07/17/20 00:38 ONCE ONE Sodium Chloride 3 ml 07/17/20 08:00 0.9 % Sodium Chloride Flush 3 Ml Syringe IVFLUSH QSHIFT [facility] Home Medications Medication Instructions Recorded Confirmed Last Taken Type cetirizine [Zyrtec] 10 mg PO DAILY 07/17/20 07/17/20 07/16/20 History Physical Exam Vital Signs and Narrative: Vital Signs: Last Vital Signs Temp 97.9 F 07/16/20 16:00 Pulse 62 07/16/20 22:31 Resp 18 07/16/20 22:31 BP 202/95 H 07/16/20 22:31 Pulse Ox 100 07/16/20 22:31 Body Mass Index 26.6 Gen: Appears be in no acute distress HEENT: NCAT, Moist mucosa. Pulmonary: Vesicular breath sounds, fair air entry CVS: Normal S1-S2 Abdomen: BS+, Soft, Nontender Extremities: Warm well perfused Neuro: Alert and awake. Sensations equal bilaterally; strength intact/5/5 throughout. Results Labs CBC and Chem 7: 07/18/20 06:19 07/18/20 06:19 Labs: Laboratory Results - last 24 hr 07/16/20 07/16/20 07/16/20 16:29 16:29 16:29 MCV 91.8 MCH 31.1 MCHC 33.9 RDW 13.5 Plt Count 177 MPV 13.0 H Immature Gran % (Auto) 0.6 H Neut % (Auto) 50.4 Lymph % (Auto) 31.9 Bradford % (Auto) 8.8 Eos % (Auto) 6.9 H Baso % (Auto) 1.4 Lymph # (Auto) 2.8 Bradford # (Auto) 0.8 Eos # (Auto) 0.6 H Baso # (Auto) 0.1 Abs Immat Gran (auto) 0.05 H Absolute Neuts (auto) 4.5 Absolute Nucleated RBC 0.000 Nucleated RBC % (auto) 0.0 Anion Gap 14 Estim Creat Clear Calc 83.0 Estimated GFR > 60 Random Glucose 173 H Calcium 9.6 D Total Bilirubin 0.5 AST 12 D ALT 19 Alkaline Phosphatase 54 Troponin I High Sens < 3.5 Total Protein 7.4 Albumin 4.3 COVID-19 ([facility]AY) COVID-19 Clin Com 07/16/20 22:57 MCV MCH MCHC RDW Plt Count MPV Immature Gran % (Auto) Neut % (Auto) Lymph % (Auto) Bradford % (Auto) Eos % (Auto) Baso % (Auto) Lymph # (Auto) Bradford # (Auto) Eos # (Auto) Baso # (Auto) Abs Immat Gran (auto) Absolute Neuts (auto) Absolute Nucleated RBC Nucleated RBC % (auto) Anion Gap Estim Creat Clear Calc Estimated GFR Random Glucose Calcium Total Bilirubin AST ALT Alkaline Phosphatase Troponin I High Sens Total Protein Albumin COVID-19 (SANJAY) Negative COVID-19 Clin Com See Note Imaging Radiologist's Impressions: Impressions Head/Neck CTA 07/16/20 22:39 IMPRESSION: 1. Calcifications along the proximal right and left internal carotid arteries with less than 50% luminal narrowing. 2. Moderate narrowing of the right vertebral artery at the C4-C5 level. 3. No large vessel occlusion or significant stenosis in the intracranial circulation. 4. No acute intracranial findings. 5. Partial opacification of the paranasal sinuses and mastoid air cells bilaterally. Assessment and Plan (1) CVA (cerebral vascular accident): Status: Acute 50-year-old male with a past medical history of COVID-19 positive, tobacco dependence, alcohol abuse presented to the hospital with a chief complaint of right facial numbness and tingling and right upper extremity weakness. CVA: Right upper extremity weakness improved. NIHSS was 0 in the ER. Patient still complained of right facial numbness sensation. No facial droop. Uvula is midline. No pronator drift. Other the sensations are intact. Strength is equal bilaterally. CT head showed no acute findings Neurology consult Dysphagia screen PT/OT Echocardiogram with bubble study Telemetry Cycle cardiac enzymes s/w Plavix daily( pt has anaphylaxis to ibuprofen- hence no aspirin) Tobacco dependence: Patient counseled on smoking cessation. Nicotine patch. DVT prophylaxis: SCD boots Code status: Full code
[2020-07-17] MEDS: LORazepam 1 MG TABLET 2 MG PO (00:54)
[2020-07-17 07:14] LABS: Basophils Absolute Auto 0.1 X10*3/uL (0.0-0.2); Basophils Percent Auto 1.2 % (0-2); Eosinophils Absolute Auto 0.8 X10*3/uL (0.0-0.4); Eosinophils Percent Auto 8.6 % (0-4); Hematocrit 44.6 % (42-52); Hemoglobin 15.1 g/dl (14.0-18.0); Imm Gran Abs Auto 0.05 X10*3/uL (0.00-0.03); Imm Gran Pct Auto 0.5 % (0.0-0.4); Lymphocytes Absolute Auto 2.9 X10*3/uL (1.2-4.9); Lymphocytes Percent Auto 30.8 % (20-40); MANUAL DIFF FLAG SCAN; Mean Corpuscular HGB Conc 33.9 g/dl (31.0-36.0); Mean Corpuscular Volume 91.6 fL (80-98); Monocytes Absolute Auto 0.8 X10*3/uL (0.1-1.2); Monocytes Percent Auto 8.9 % (2-11); Neutrophils Absolute Auto 4.6 X10*3/uL (2.0-8.3); PLT CLUMP 1; Red Blood Count 4.87 X10*6/uL (4.60-5.80); Red Cell Distribution Width 13.5 % (11.0-16.0); SCAN SMEAR FLAG 1
[2020-07-17 07:21] LABS: Cholesterol 168 mg/dL; HDL Cholesterol 38 mg/dL; LDL Cholesterol Calculated 98 mg/dl; Triglycerides 163 mg/dL
[2020-07-17 07:25] LABS: Anion Gap 11 (12-20); Blood Urea Nitrogen 14 mg/dL (9-16); Calcium 8.6 mg/dL (8.4-10.2); Carbon Dioxide 24 mmol/L (22-29); Chloride 106 mmol/L (96-108); Creatinine Clr Calc Pharmacy 90.9; Estimated Glomerular Filt Rate > 60; Glucose Random 146 mg/dL (60-115); Potassium 4.1 mmol/L (3.3-5.1); Sodium 137 mmol/L (135-145)
[2020-07-17 07:26] VITALS: BP 123/65; PULSE 62; RESP 13; O2SAT 97
[2020-07-17] MEDS: Dextrose 5 % and 0.45 % NaCl 1,000 ML 100 ML IVCONT ×2 (07:31→16:58)
--- NOTE | 2020-07-17 07:37 | PC.NURSE ---
pt resting quietly in bed. Speech is clear, tongue tracking midline, extremities bilaterally equal in strength, Pt A&Ox3.
[2020-07-17 07:39] LABS: Platelet Count 124 X10*3/uL (160-400); SLIDE REVIEW VERIFIED; White Blood Count 9.3 X10*3/uL (4.8-10.8)
--- NOTE | 2020-07-17 08:19 | HE.PHANOTE ---
Pharmacy Consult ? Medication Reconciliation Pharmacy has completed the medication reconciliation and there were no significant medication issues requiring provider attention. Anita SalazarD
[2020-07-17 08:38] LABS: Estimated Average Glucose 189 mg/dL; Hemoglobin A1c % 8.2 %
[2020-07-17] MEDS: Atorvastatin Calcium 80 MG TABLET PO (09:12)
[2020-07-17] MEDS: Clopidogrel Bisulfate 75 MG TABLET PO (09:12)
[2020-07-17] MEDS: LORazepam 0.5 MG TABLET PO ×3 (10:38→20:10)
--- NOTE | 2020-07-17 10:52 | MHC.SL.SWA ---
Speech Pathologist Impression: Within Functional Limits Risk of Aspiration Due to: Neurological Condition Dysphasia Diet Status: No Change Liquid Consistency and Strategies for Safe Swallow: Liquid Intake Recommendation: Thin Liquid Intake Strategies: Unrestricted Solid Food Consistency: Dietary Recommendations: Regular Oral Medication Intake: Whole with Liquid Compensatory Strategies and Precautions to be Taken for Safe Swallow: Small Bites and Sips Rate of Ingestion Change Supervision While Eating and Drinking for Safe Swallow: None Needed Recommendation for Speech: NA:Typical Evaluation Comment: Speech and swallow deemed WFL. Please re-refer if there are any changes or if MARKET DEVELOPMENT ANALYST can be of further assistance. Gasfitter Clinican/Clinical Fellow: No Supervisory Statement: I have reviewed and agree with the student/clinical fellow's documentation: N/A Speech Language Pathologist: Linda Iniguez M.A., CCC-MARKET DEVELOPMENT ANALYST
[2020-07-17 11:29] VITALS: BP 181/79; PULSE 62; RESP 18; TEMP 36.7; O2SAT 97
--- NOTE | 2020-07-17 11:58 | MHC.STROKE ---
WALK IN YESTERDAY AT 1548. SEE ED NOTES. I MET WITH THE PATIENT AND HIS FIANCE TO PROVIDE STROKE EDUCATION. I CLARIFIED HIS SYMPTOM ONSET TO BE AT 1400 OR EARLIER ON 07/16/20, HE COULDN'T SAY BECAUSE HE HASN'T FELT WELL SINCE HE HAD COVID IN MAY. HE HAS A HISTORY OF ANXIETY, HE HAS BEEN WEANING HIMSELF OFF THE KLONIPIN. HE TAKES NO OTHER MEDICATIONS. HE DOES SMOKE AND IS REQUESTING A PATCH. SMOKES MARIJUANA FOR HIS ANXIETY. HE IS STILL C/O SLIGHT NUMBNESS HIS RIGHT FACE AND ARM BUT IT IS MINIMAL, EXCLUDED FROM TPA BASED ON NON-DISABLING SYMPTOMS AND NIHSS = 0 IN ED. I REVEWED THE PLAN OF CARE AND HIS STROKE [employer] FACTORS. HE SAID HIS BP DOES GO UP WHEN HE'S ANXIOUS, HIS FIANCE TAKES HIS BP AT HOME ONCE IN A WHILE. ECHO WITH BUBBLE STUDY ORDERED. ALL STROKE MEASURES MET, AMBULATORY AD HUONG, SEE PT NOTE, EXCLUDED FROM VTE PROPHYLAXIS. NEUROLOGY CONSULT PENDING.
--- NOTE | 2020-07-17 12:29 | MHC.CM.PN ---
met with pt and his nele pt seen [place] [facility] [place] and was dcd ot is suggesting outpt ot pt has a ride home whe n he is dcd obs notice given hcp filed
[2020-07-17] MEDS: Nicotine 21 MG PATCH.TD24 TRANSDERMA (12:48)
[2020-07-17] MEDS: hydrOXYzine HCL 25 MG TABLET PO ×2 (13:29→20:11)
[2020-07-17 15:21] VITALS: BP 163/76; PULSE 65; RESP 16; TEMP 36.4; O2SAT 98
[2020-07-17 19:32] VITALS: BP 158/78; PULSE 79; RESP 16; TEMP 36.8; O2SAT 97
[2020-07-17] MEDS: Acetaminophen 325 MG TABLET 650 MG PO (20:11)
[2020-07-17 23:40] VITALS: BP 153/78; PULSE 71; RESP 16; TEMP 36.5; O2SAT 98
[2020-07-18] MEDS: Dextrose 5 % and 0.45 % NaCl 1,000 ML 100 ML IVCONT (02:01)
[2020-07-18 03:45] VITALS: BP 166/65; PULSE 60; RESP 16; TEMP 36.2; O2SAT 98
[2020-07-18 07:10] VITALS: BP 173/88; PULSE 60; RESP 18; TEMP 36.4; O2SAT 97
[2020-07-18 07:42] LABS: Thyroid Stimulating Hormone 3.52 uIU/mL (0.32-4.0)
[2020-07-18 07:49] LABS: MANUAL DIFF FLAG NO
[2020-07-18 07:54] LABS: Basophils Absolute Auto 0.1 X10*3/uL (0.0-0.2); Basophils Percent Auto 1.1 % (0-2); Eosinophils Absolute Auto 0.8 X10*3/uL (0.0-0.4); Eosinophils Percent Auto 8.2 % (0-4); Hematocrit 44.3 % (42-52); Hemoglobin 14.8 g/dl (14.0-18.0); Imm Gran Abs Auto 0.05 X10*3/uL (0.00-0.03); Imm Gran Pct Auto 0.5 % (0.0-0.4); Lymphocytes Absolute Auto 2.9 X10*3/uL (1.2-4.9); Mean Corpuscular HGB Conc 33.4 g/dl (31.0-36.0); Mean Corpuscular Hemoglobin 31.3 pg (27.0-33.0); Mean Corpuscular Volume 93.7 fL (80-98); Mean Platelet Volume 12.6 fL (9.4-12.4); Monocytes Absolute Auto 0.9 X10*3/uL (0.1-1.2); Monocytes Percent Auto 9.4 % (2-11); Neutrophils Absolute Auto 4.6 X10*3/uL (2.0-8.3); Neutrophils Percent Auto 49.8 % (45-73); Platelet Count 153 X10*3/uL (160-400); Red Blood Count 4.73 X10*6/uL (4.60-5.80); Red Cell Distribution Width 13.3 % (11.0-16.0); White Blood Count 9.3 X10*3/uL (4.8-10.8)
[2020-07-18 08:01] LABS: Anion Gap 15 (12-20); Blood Urea Nitrogen 11 mg/dL (9-16); Calcium 8.8 mg/dL (8.4-10.2); Carbon Dioxide 20 mmol/L (22-29); Chloride 107 mmol/L (96-108); Estimated Glomerular Filt Rate > 60; Glucose Random 189 mg/dL (60-115); Sodium 138 mmol/L (135-145)
[2020-07-18] MEDS: Loratadine 10 MG TABLET PO (08:43)
[2020-07-18] MEDS: Nicotine 21 MG PATCH.TD24 TRANSDERMA (08:43)
[2020-07-18] MEDS: Atorvastatin Calcium 80 MG TABLET PO (08:43)
[2020-07-18] MEDS: hydrOXYzine HCL 25 MG TABLET PO (08:44)
[2020-07-18] MEDS: LORazepam 0.5 MG TABLET PO (08:44)
[2020-07-18 10:31] LABS: Cholesterol 142 mg/dL; HDL Cholesterol 37 mg/dL; LDL Cholesterol Calculated 83 mg/dl; Triglycerides 114 mg/dL
--- NOTE | 2020-07-18 11:50 | MHC.CM.PN ---
PATIENT IS RETURNING HOME - SELF CARE. GIRLFRIEND WILL PROVIDE TRANSPORT HOME. RN AWARE OF PLAN.
--- NOTE | 2020-07-18 15:56 | P.DS_ITS ---
DS: Providers Provider Date of Service: 07/18/20 Date of admission: 07/17/20 00:34 Primary care physician: Unknown Physician Consults: 07/17/20 00:35 Consult to Neurology Routine Consulting Provider: Maria A Victoria Reason for consultation: cva DS: Diagnosis Discharge Diagnosis (1) CVA (cerebral vascular accident): Status: Acute DS: Medications Discharge Medications Home Medications: Home Medications Medication Instructions Recorded Confirmed cetirizine [Zyrtec] 10 mg PO DAILY 07/17/20 07/17/20 DS: Summary Hospital Course Hospital Course: Chief Complaint: Right side of the face numbness 50-year-old male with a past medical history of COVID 19 positive, history of alcohol abuse, tobacco dependence presented to the hospital with a chief complaint of right side of the face numbness and tingling. Patient reports the symptoms started around 2:00 p.m.. At the same time he noticed that he was not able to use his right upper extremity; the right upper extremity weakness lasted for about 20 minutes. Subsequently took a shower. Home but the right side of the face numbness and tingling still persisted hence decided to come to the ER for further evaluation. Denies any chest pain palpitations lightheadedness dizziness. Denies any fever chills cough. Denies any recent travel sick contacts. Per ER team patient exam was nonfocal but patient still complains of right face numbness and tingling. CT head and CT angio head and neck showed no acute findings. Patient's NIHSS was 0. Patient blood pressure was 202/95 which improved to 100 30/63 without any intervention. Admitted to the hospital for further management. After review of his CT angiogram as well as lipid battery patient symptoms were felt to be most likely secondary to his hypertension. Patient presented with a blood pressure of 202/95. I discuss these with the patient and asked him about his blood pressure. Patient reports that he stop taking his lisinopril many years ago because the cause him hypotension. Patient reports that he is usually hypertensive when he is anxious and he has been anxious in the ED. His numbness is improved and he has currently no acute issues and will be discharged home case was discussed with neurology and pt cleared for discharge Asked pt to follow up with his PCP in regards to his BP and to document his BP daily for the next wk before his appoiment with PCP. to return to ed if symptoms worsen or reoccur Time Spent with Patient Time attestation: Total time spent providing and/or coordinating discharge services: Discharge coordination time: Greater than 30 minutes Quality: Stroke Does the patient have a stroke diagnosis?: Yes Reason for No Anti-thrombotic at DC: Drug treatment not indicated Reason for No Anticoagulant at DC: Drug treatment not indicated Reason Not Initiating IV-Tpa: Drug treatment not indicated Reason for No Anti-thrombotic by Day Two: Drug treatment not indicated Reason for No Statin at DC: Drug treatment not indicated Physical Exam Vital Signs: Vital Signs: Last Vital Signs Temp 97.5 F 07/18/20 07:10 Pulse 60 07/18/20 07:10 Resp 18 07/18/20 07:10 BP 173/88 H 07/18/20 07:10 Pulse Ox 97 07/18/20 07:10 Body Mass Index 26.6 Const: General: cooperative and no acute distress Orientation/consciousness: patient oriented x3 Eyes: General: appearance normal, both eyes and all related structures Resp: Effort & Inspection: normal respiratory effort and able to speak in complete sentences Cardio: Rate: regular rate Rhythm: regular rhythm GI: Palpation (GI): Soft to palpation Auscultation: normal bowel sounds Neuro: General: patient oriented x3 Cognition (Neuro): normal cognition Extrem: Other: No neurological deficits General: Yes normal to inspection and Yes no pedal edema DS: Data Data Completed and Pending Labs on day of discharge: Laboratory Results - last 24 hr 07/18/20 07/18/20 06:19 06:19 WBC 9.3 RBC 4.73 Hgb 14.8 Hct 44.3 MCV 93.7 MCH 31.3 MCHC 33.4 RDW 13.3 Plt Count 153 L MPV 12.6 H Immature Gran % (Auto) 0.5 H Neut % (Auto) 49.8 Lymph % (Auto) 31.0 [place] % (Auto) 9.4 Eos % (Auto) 8.2 H Baso % (Auto) 1.1 Lymph # (Auto) 2.9 [place] # (Auto) 0.9 Eos # (Auto) 0.8 H Baso # (Auto) 0.1 Abs Immat Gran (auto) 0.05 H Absolute Neuts (auto) 4.6 Absolute Nucleated RBC 0.000 Nucleated RBC % (auto) 0.0 Sodium 138 Potassium 4.0 Chloride 107 Carbon Dioxide 20 L Anion Gap 15 BUN 11 Creatinine 0.90 Estim Creat Clear Calc 95.0 Estimated GFR > 60 Random Glucose 189 H Calcium 8.8 Triglycerides 114 Cholesterol 142 LDL Cholesterol, Calc 83 HDL Cholesterol 37 TSH 3.52 Discharge Plan Discharge Patient Disposition: Home, Self-Care Referrals: Physician,Unknown [Primary Care Provider] - 1 Week Discharge Medications: Continued cetirizine [Zyrtec] 10 mg Tablet 10 mg PO DAILY RF: 0 Discharge Orders: Discharge Order (Routine); Ordered 07/18/20 Ordered By: Khadra Banerjee Diet: advance to usual diet Activity on Discharge: As tolerated Stand Alone Forms: Patient Portal Discharge page Care Plan Goals: Recovery, avoid hospitalization Health Concerns: uncontrolled hypetension uncontrolled Anxiety Plan of Treatment: Please check your blood pressure daily for the next week and take the readings with you to your PCP Your CTA was negative for any acute stroke Assessment: Please follow with PCP in 1 wk to discuss management of anxiety and hypertension if your symptoms worsen or reoccur please return to ED Discharge Date/Time: 07/18/20 12:00
== END 2020-07-18 12:00 | disposition home or self-care (01) ==
LOC: HO.ED 07-17 00:34 → HO.EDOVER 07-17 00:43 → HO.S3 07-17 10:12
PROVIDERS: Admitting Provider Hospitalist; Emergency Provider Emergency Medicine; PCP Internal Medicine; Visit Provider Internal Medicine
DX: I10 Essential (primary) hypertension (principal); M62.81 Muscle weakness (generalized); I65.01 Occlusion and stenosis of right vertebral artery; I65.23 Occlusion and stenosis of bilateral carotid arteries; F41.9 Anxiety disorder, unspecified; R20.0 Anesthesia of skin; J44.9 Chronic obstructive pulmonary disease, unspecified; F17.210 Nicotine dependence, cigarettes, uncomplicated; F14.10 Cocaine abuse, uncomplicated; F12.10 Cannabis abuse, uncomplicated; F10.11 Alcohol abuse, in remission; Z20.822 Contact with and (suspected) exposure to COVID-19; Z88.6 Allergy status to analgesic agent; Z86.16 Personal history of COVID-19
CPT/HCPCS: 36415; 70496; 70498; 80048; 80053; 80061; 83036; 84443; 84484; 85025; 87635; 92523; 92610; 93005; 96365; 96366; 97161; 97165; 99218; 99284; 99285; Q9967

== ENCOUNTER 2021-02-07 12:10 | Emergency (ER) | payer MEDICARE, OTHER, SELFPAY | END 2021-02-07 17:31 | disposition left against medical advice (07) | PROVIDERS: Emergency Provider Emergency Medicine | DX: R50.9 Fever, unspecified (principal) ==

== ENCOUNTER 2021-05-08 16:48 | Emergency (ER) | payer MEDICARE, OTHER, SELFPAY ==
--- NOTE | ~2021-05-08 | CT_ITS ---
EXAMINATION: CHEST X-RAY AND CT BRAIN WITHOUT CONTRAST. CLINICAL INFORMATION: Shortness of breath. Cough. Bilateral lower extremity weakness and numbness. COMPARISON: Chest x-ray 06/05/2020 TECHNIQUE: Chest 2 views. 5 mm thin axial and reformatted 2 mm thin sagittal and coronal images of brain were obtained without contrast. DLP 805 mGy/cm. FINDINGS: Chest: The lungs are well-expanded and clear of acute process. The heart size and pulmonary vascularity is normal. No gross bony abnormality seen. Brain: There is no acute intra-axial, extra-axial bleed, masses or midline shift. There is no acute infarction in evolution. There is no edema. The lateral ventricles are symmetrical in size and configuration without enlargement. Bone windows reveal no calvarial abnormality. The scalp soft tissues are normal. There is diffuse mucoperiosteal thickening bilateral ethmoid and sphenoid sinuses. There is complete opacification of right mastoid sinus and minimal left mastoid sinus. CT/CT head/brain wo con IMPRESSION: Unremarkable chest x-ray. Chronic bilateral ethmoid and sphenoid sinusitis. There is chronic right and minimal left mastoiditis.
[2021-05-08 16:52] VITALS: BP 228/81; PULSE 75; RESP 15; TEMP 36.6; O2SAT 98; BMI 25.8
--- NOTE | 2021-05-08 17:29 | ED.GENADULT ---
HPI - General Adult General Chief complaint: Extremity Problem Stated complaint: pain in both legs/cramping Time Seen by Provider: 05/08/21 17:03 Source: patient Mode of arrival: ambulatory Limitations: no limitations History of Present Illness HPI narrative: 51-year-old male who presents emergency department for evaluation of feeling off balance, burning , cramping and pain in his lower extremities bilaterally. He states that the symptoms have been going on for approximately 2 weeks but have gotten worse over the past 3 days. He states that 2 weeks prior he believes that he had a viral illness with symptoms that included a foggy sensation in his brain, nonproductive cough, chest tightness, shortness of breath, myalgias and feeling off balance and a constant numbness with burning sensation from the knee down to his feet in both lower extremities. He also had diarrhea. He states that most of the symptoms have improved but he still has chest pain, shortness of breath , 3-4 loose diarrheal stools his per day and the pain, cramping and numbness from the knees down to his feet. He states that the pain in his lower extremities is a constant, burning like sensation which is moderate to severe in intensity and is getting worse. He states that he is able to walk around the gets cramping sensations in his legs and he does feel off balance with walking. Over the past 3-4 days he denies having fever, chills, rhinorrhea, sore throat, cough, chest pain, abdominal pain, dysuria, black tarry stools or bloody stools, weight loss or weight gain. Related Data Home Medications Medication Instructions Recorded Confirmed cetirizine 10 mg tablet (Zyrtec) 10 mg PO DAILY 07/17/20 07/17/20 Previous Rx's Medication Instructions Recorded oxycodone 5 mg tablet 5 mg PO Q4H PRN #14 tab 05/08/21 Allergies Allergy/AdvReac Type Severity Reaction Status Date / Time ibuprofen [From MOTRIN] Allergy Severe ANAPHYLAXIS Verified 06/05/20 20:26 Review of Systems Review of Systems: Yes all other systems are reviewed and are negative [facility] Past Medical History [facility] Narrative: Past medical history: Diabetes mellitus, COPD, COVID-19 infection 07/17/2020, stroke. Past surgical history: ?lazy eye? surgery, lumbar spine surgery. Social history: Patient smokes 3/4 of pack of cigarettes per day times 39 years, patient drinks alcohol on the weekends he states the drinks several beers. Patient states that he smokes marijuana daily. Medical History HTN (hypertension) Social History Social History Household Members: Significant Other Housing: House Do you presently have visiting nurse or other home services: No Alcohol intake: former Patient Tobacco Use Status: Current everyday Tobacco user Tobacco use type: Cigarette and Cigar Cigarette Packs Per Day: 1 Cigarettes Per Day: 20.0 Substance Use Type: Marijuana Advance Directives: No Advance Directives Information Provided: No service: No Physical Exam ED Vital Signs: Vital Signs - 24 hr 05/08/21 16:52 Temperature 97.9 F Pulse Rate 75 Respiratory Rate 15 Blood Pressure 228/81 H Pulse Oximetry 98 BMI result Body Mass Index 25.8 Course Course Course Narrative: 51-year-old male who presents emergency department for evaluation of 2 weeks of viral syndrome with burning pain and numbness from his knees down to his feet in both lower extremities with intermittent cramping. Vital signs revealed an elevated blood pressure of 228/81 otherwise were unremarkable. The patient's physical examination was unremarkable with a normal neurologic exam, normal cerebellar exam and normal gait. Ordered a laboratory evaluation to include CBC, CMP, CK, alcohol, lactic acid, lipase, TSH, urinalysis, B12 and folate, COVID-19, influenza, RSV. Patient was given oxycodone 10 mg orally for pain. I also ordered a CT scan of the head and chest x-ray. 2025: Laboratory evaluation: Anemia with an H&H of 10.3 and 30.6, this is new compared to 07/18/2020. MCV was normal at 92.7. Low platelets [id number], this is chronic since 07/17/2020. CMP revealed an elevated glucose of 137 otherwise unremarkable. Urinalysis was negative. ETOH was below detectable limits. COVID-19, RSV and influenza were negative. Radiology evaluation: CT scan of the brain was unremarkable. Chest x-ray was unremarkable. At this time, I do not have a clear etiology for the patient's symptoms. I suspect that is related to his viral illness. This time I do not that he has Guill[place] syndrome however I did tell him if he started to get numbness weakness, pain in his upper extremities or if his symptoms get worse he should then return to the emergency department for re-evaluation. The patient was discharged home with a prescription for oxycodone. He is taking Aleve as well. I will refer him to our neurologist as well. Medical Decision Making Lab Data Result diagrams: 05/08/21 18:03 05/08/21 18:03 Labs: Lab Results 05/08/21 05/08/21 05/08/21 Range/Units 18:03 18:03 18:03 WBC 7.6 (4.8-10.8) X10*3/uL RBC 3.30 L (4.60-5.80) X10*6/uL Hgb 10.3 L (14.0-18.0) g/dl Hct 30.6 L (42.0-52.0) % MCV 92.7 (80.0-98.0) fL MCH 31.2 (27.0-33.0) pg MCHC 33.7 (31.0-36.0) g/dl RDW 12.5 (11.0-16.0) % Plt Count 141 L (160-400) X10*3/uL MPV 11.9 (9.4-12.4) fL Immature Gran % (Auto) 0.3 (0.0-0.4) % Neut % (Auto) 54.5 (45-73) % Lymph % (Auto) 27.5 (20-40) % [place] % (Auto) 11.3 H (2-11) % Eos % (Auto) 5.6 H (0-4) % Baso % (Auto) 0.8 (0-2) % Lymph # (Auto) 2.1 (1.2-4.9) X10*3/uL [place] # (Auto) 0.9 (0.1-1.2) X10*3/uL Eos # (Auto) 0.4 (0.0-0.4) X10*3/uL Baso # (Auto) 0.1 (0.0-0.2) X10*3/uL Abs Immat Gran (auto) 0.02 (0.00-0.03) X10*3/uL Absolute Neuts (auto) 4.1 (2.0-8.3) x10*3/uL Absolute Nucleated RBC 0.000 (0.0-0.012) X10*3/uL Nucleated RBC % (auto) 0.0 (0.0-0.2) /100WBC ESR 10 (0-15) MM/HR Sodium 139 (135-145) mmol/L Potassium 4.3 (3.3-5.1) mmol/L Chloride 104 (96-108) mmol/L Carbon Dioxide 26 (22-29) mmol/L Anion Gap 13 (12-20) BUN 13 (9-16) mg/dL Creatinine 1.13 (0.5-1.4) mg/dL Estim Creat Clear Calc 77.3 Estimated GFR > 60 Random Glucose 137 H (60-115) mg/dL Lactic Acid (0.5-2.0) mmol/L Calcium 9.8 D (8.4-10.2) mg/dL Total Bilirubin 0.5 (0.0-1.0) mg/dL AST 9 (5-37) U/L ALT 17 (0-40) U/L Alkaline Phosphatase 60 (39-117) U/L Total Creatine Kinase 190 H (38-174) U/L C-Reactive Protein 0.68 H (< or = 0.50) mg/dL Total Protein 7.6 (6.5-8.0) g/dL Albumin 4.3 (3.5-5.0) g/dL Lipase 27 (8-78) U/L TSH 1.39 (0.32-4.0) uIU/mL Urine Color Urine Appearance Urine pH (5.0-8.0) Ur Specific [place] (1.005-1.025) Urine Protein (NEG-TRACE) MG/DL Urine Glucose (UA) (NEG) MG/DL Urine Ketones (NEG) MG/DL Urine Blood (NEG) Urine Nitrite (NEG) Ur Leukocyte Esterase (NEG) Ethyl Alcohol mg/dL Influenza Type A (PCR) (Negative) Influenza Type B (PCR) (Negative) RSV RNA Qual (PCR) (Negative) SARS-CoV-2 RNA (RT-PCR) (Negative) 05/08/21 05/08/21 05/08/21 Range/Units 18:03 18:03 18:03 WBC (4.8-10.8) X10*3/uL RBC (4.60-5.80) X10*6/uL Hgb (14.0-18.0) g/dl Hct (42.0-52.0) % MCV (80.0-98.0) fL MCH (27.0-33.0) pg MCHC (31.0-36.0) g/dl RDW (11.0-16.0) % Plt Count (160-400) X10*3/uL MPV (9.4-12.4) fL Immature Gran % (Auto) (0.0-0.4) % Neut % (Auto) (45-73) % Lymph % (Auto) (20-40) % [place] % (Auto) (2-11) % Eos % (Auto) (0-4) % Baso % (Auto) (0-2) % Lymph # (Auto) (1.2-4.9) X10*3/uL [place] # (Auto) (0.1-1.2) X10*3/uL Eos # (Auto) (0.0-0.4) X10*3/uL Baso # (Auto) (0.0-0.2) X10*3/uL Abs Immat Gran (auto) (0.00-0.03) X10*3/uL Absolute Neuts (auto) (2.0-8.3) x10*3/uL Absolute Nucleated RBC (0.0-0.012) X10*3/uL Nucleated RBC % (auto) (0.0-0.2) /100WBC ESR (0-15) MM/HR Sodium (135-145) mmol/L Potassium (3.3-5.1) mmol/L Chloride (96-108) mmol/L Carbon Dioxide (22-29) mmol/L Anion Gap (12-20) BUN (9-16) mg/dL Creatinine (0.5-1.4) mg/dL Estim Creat Clear Calc Estimated GFR Random Glucose (60-115) mg/dL Lactic Acid 1.9 (0.5-2.0) mmol/L Calcium (8.4-10.2) mg/dL Total Bilirubin (0.0-1.0) mg/dL AST (5-37) U/L ALT (0-40) U/L Alkaline Phosphatase (39-117) U/L Total Creatine Kinase (38-174) U/L C-Reactive Protein (< or = 0.50) mg/dL Total Protein (6.5-8.0) g/dL Albumin (3.5-5.0) g/dL Lipase (8-78) U/L TSH (0.32-4.0) uIU/mL Urine Color Urine Appearance Urine pH (5.0-8.0) Ur Specific [place] (1.005-1.025) Urine Protein (NEG-TRACE) MG/DL Urine Glucose (UA) (NEG) MG/DL Urine Ketones (NEG) MG/DL Urine Blood (NEG) Urine Nitrite (NEG) Ur Leukocyte Esterase (NEG) Ethyl Alcohol < 10 mg/dL Influenza Type A (PCR) NEGATIVE (Negative) Influenza Type B (PCR) NEGATIVE (Negative) RSV RNA Qual (PCR) NEGATIVE (Negative) SARS-CoV-2 RNA (RT-PCR) NEGATIVE (Negative) 05/08/21 Range/Units 18:22 WBC (4.8-10.8) X10*3/uL RBC (4.60-5.80) X10*6/uL Hgb (14.0-18.0) g/dl Hct (42.0-52.0) % MCV (80.0-98.0) fL MCH (27.0-33.0) pg MCHC (31.0-36.0) g/dl RDW (11.0-16.0) % Plt Count (160-400) X10*3/uL MPV (9.4-12.4) fL Immature Gran % (Auto) (0.0-0.4) % Neut % (Auto) (45-73) % Lymph % (Auto) (20-40) % [place] % (Auto) (2-11) % Eos % (Auto) (0-4) % Baso % (Auto) (0-2) % Lymph # (Auto) (1.2-4.9) X10*3/uL [place] # (Auto) (0.1-1.2) X10*3/uL Eos # (Auto) (0.0-0.4) X10*3/uL Baso # (Auto) (0.0-0.2) X10*3/uL Abs Immat Gran (auto) (0.00-0.03) X10*3/uL Absolute Neuts (auto) (2.0-8.3) x10*3/uL Absolute Nucleated RBC (0.0-0.012) X10*3/uL Nucleated RBC % (auto) (0.0-0.2) /100WBC ESR (0-15) MM/HR Sodium (135-145) mmol/L Potassium (3.3-5.1) mmol/L Chloride (96-108) mmol/L Carbon Dioxide (22-29) mmol/L Anion Gap (12-20) BUN (9-16) mg/dL Creatinine (0.5-1.4) mg/dL Estim Creat Clear Calc Estimated GFR Random Glucose (60-115) mg/dL Lactic Acid (0.5-2.0) mmol/L Calcium (8.4-10.2) mg/dL Total Bilirubin (0.0-1.0) mg/dL AST (5-37) U/L ALT (0-40) U/L Alkaline Phosphatase (39-117) U/L Total Creatine Kinase (38-174) U/L C-Reactive Protein (< or = 0.50) mg/dL Total Protein (6.5-8.0) g/dL Albumin (3.5-5.0) g/dL Lipase (8-78) U/L TSH (0.32-4.0) uIU/mL Urine Color YELLOW Urine Appearance CLEAR Urine pH 6.5 (5.0-8.0) Ur Specific [place] 1.020 (1.005-1.025) Urine Protein TRACE (NEG-TRACE) MG/DL Urine Glucose (UA) NEG (NEG) MG/DL Urine Ketones NEG (NEG) MG/DL Urine Blood NEG (NEG) Urine Nitrite NEG (NEG) Ur Leukocyte Esterase NEG (NEG) Ethyl Alcohol mg/dL Influenza Type A (PCR) (Negative) Influenza Type B (PCR) (Negative) RSV RNA Qual (PCR) (Negative) SARS-CoV-2 RNA (RT-PCR) (Negative) Discharge Plan Discharge Clinical Impression: Acute extremity pain, Acute viral syndrome Lower extremity weakness Qualifiers: Laterality: bilateral Qualified Code(s): R29.898 - Other symptoms and signs involving the musculoskeletal system Anemia Qualifiers: Anemia type: unspecified type Qualified Code(s): D64.9 - Anemia, unspecified Patient Disposition: Home, Self-Care Additional Instructions: The CT scan of your brain was normal. The chest x-ray was unremarkable. Your laboratory evaluation did reveal anemia which is new and you should follow-up with your doctor to further evaluate this. You also have a low platelet count but this was present in July of 2020. The rest of your labs including your inflammatory markers and CK were unremarkable. Your thyroid function was normal. Your COVID-19, influenza and RSV tests were negative. Your B12 and folate tests are pending you should check these results with primary provider At this time I do not have a clear cause for your symptoms, Guill[place] is the possibility however at this time, you have good strength and normal reflexes and you do not have upper arm symptoms. However if your symptoms get worse or yeast her to get pain, numbness and weakness in your arms then you should return to the emergency department for re-evaluation. Take Aleve 2 pills every 12 hours as needed for pain do not take more than 4 pills a day. For pain not relieved by Aleve, take oxycodone 5 mg pills, 1 pill every 4 hours as needed for pain. Do not drive or work while taking this medication since they can cause sleepiness. Oxycodone is a narcotic medication that can be addicting. If you are concerned about addiction you can ask the pharmacist for less pills or do not get this prescription filled. Follow-up with your doctor in 2 days. Please call our neurologist to see if he can also follow you up to further evaluate your symptoms. Please return to the emergency department if your symptoms get worse or if you develop any symptoms that are concerning to you. Prescriptions: New oxycodone 5 mg tablet 5 mg PO Q4H PRN (Reason: pain) Qty: 14 0RF Rx Instructions: Patient may request partial fill No Action cetirizine [Zyrtec] 10 mg Tablet 10 mg PO DAILY 0RF Referrals: Michelle Victoria MD [Physician] - 1 week
[2021-05-08 18:12] LABS: MANUAL DIFF FLAG NO
[2021-05-08 18:14] LABS: Basophils Absolute Auto 0.1 X10*3/uL (0.0-0.2); Basophils Percent Auto 0.8 % (0-2); Eosinophils Absolute Auto 0.4 X10*3/uL (0.0-0.4); Eosinophils Percent Auto 5.6 % (0-4); Hematocrit 30.6 % (42.0-52.0); Hemoglobin 10.3 g/dl (14.0-18.0); Imm Gran Abs Auto 0.02 X10*3/uL (0.00-0.03); Imm Gran Pct Auto 0.3 % (0.0-0.4); Lymphocytes Absolute Auto 2.1 X10*3/uL (1.2-4.9); Lymphocytes Percent Auto 27.5 % (20-40); Mean Corpuscular HGB Conc 33.7 g/dl (31.0-36.0); Mean Corpuscular Hemoglobin 31.2 pg (27.0-33.0); Mean Corpuscular Volume 92.7 fL (80.0-98.0); Mean Platelet Volume 11.9 fL (9.4-12.4); Monocytes Absolute Auto 0.9 X10*3/uL (0.1-1.2); Monocytes Percent Auto 11.3 % (2-11); Neutrophils Absolute Auto 4.1 x10*3/uL (2.0-8.3); Neutrophils Percent Auto 54.5 % (45-73); Platelet Count 141 X10*3/uL (160-400); Red Cell Distribution Width 12.5 % (11.0-16.0); White Blood Count 7.6 X10*3/uL (4.8-10.8)
[2021-05-08] MEDS: 0.9 % Sodium Chloride 1,000 ML 999 ML IV (18:23)
[2021-05-08 18:28] LABS: Appearance Urine CLEAR; Color Urine YELLOW; Glucose Urine UA NEG (NEG); Leukocyte Esterase Urine NEG (NEG); Nitrite Urine NEG (NEG); PH 6.5 (5.0-8.0); Urine Blood NEG (NEG); Urine Ketones NEG (NEG); Urine Protein TRACE MG/DL (NEG-TRACE)
[2021-05-08 18:37] LABS: Ethanol < 10 mg/dL
[2021-05-08 18:42] LABS: Alanine Aminotransferase 17 U/L (0-40); Albumin Level 4.3 g/dL (3.5-5.0); Alkaline Phosphatase 60 U/L (39-117); Anion Gap 13 (12-20); Aspartate Amino Transferase 9 U/L (5-37); Bilirubin Total 0.5 mg/dL (0.0-1.0); Blood Urea Nitrogen 13 mg/dL (9-16); C Reactive Protein 0.68 mg/dL (< or = 0.50); Calcium 9.8 mg/dL (8.4-10.2); Carbon Dioxide 26 mmol/L (22-29); Chloride 104 mmol/L (96-108); Creatinine Clr Calc Pharmacy 77.3; Estimated Glomerular Filt Rate > 60; Glucose Random 137 mg/dL (60-115); Lipase 27 U/L (8-78); Potassium 4.3 mmol/L (3.3-5.1); Sodium 139 mmol/L (135-145); Total Protein 7.6 g/dL (6.5-8.0)
[2021-05-08 18:50] LABS: Erythrocyte Sedimentation Rate 10 MM/HR (0-15)
[2021-05-08 19:02] LABS: TSH reflex Free T4 1.39 uIU/mL (0.32-4.0)
[2021-05-08 19:33] LABS: Lactic Acid 1.9 mmol/L (0.5-2.0)
[2021-05-08 19:55] LABS: Influenza A PCR NEGATIVE (Negative); Influenza B PCR NEGATIVE (Negative); Resp Syncy Virus RNA Qual PCR NEGATIVE (Negative); SARS COV2 PCR INHOUSE NEGATIVE (Negative)
[2021-05-08 20:33] VITALS: BP 178/83; PULSE 64; RESP 18; TEMP 36.7; O2SAT 100
[2021-05-08] MEDS: oxyCODONE HCl Immed Release 5 MG TABLET 10 MG PO (20:37)
[2021-05-10 10:00] LABS: Folate 18.2 ng/mL (> or = 4.0); Vitamin B12 519 pg/mL (200-900)
== END 2021-05-08 20:48 | disposition home or self-care (01) ==
PROVIDERS: Emergency Provider Emergency Medicine Emergency Medical Services
DX: B34.9 Viral infection, unspecified (principal); M79.662 Pain in left lower leg; M79.661 Pain in right lower leg; R53.1 Weakness; D64.9 Anemia, unspecified; Z20.822 Contact with and (suspected) exposure to COVID-19; R25.2 Cramp and spasm; I10 Essential (primary) hypertension; F17.200 Nicotine dependence, unspecified, uncomplicated
CPT/HCPCS: 0241U; 36415; 70450; 71046; 80053; 81003; 82077; 82550; 82607; 82746; 83605; 83690; 84443; 85025; 85652; 86140; 96360; 99284

== ENCOUNTER 2024-07-04 17:03 | Emergency (ER) | payer MEDICARE, OTHER, SELFPAY ==
[2024-07-04 17:33] VITALS: BP 114/72; PULSE 74; RESP 16; TEMP 37.3; O2SAT 100; BMI 22.4
--- NOTE | 2024-07-04 17:33 | ED_ITS ---
HPI - Extremity Injury (Lower) General Chief Complaint: Extremity Problem Stated Complaint: Swelling L foot Related Data Home Medications ?Medication ?Instructions ?Recorded ?Confirmed cetirizine 10 mg tablet (Zyrtec) 10 mg PO DAILY 07/17/20 07/17/20 Previous Rx's ?Medication ?Instructions ?Recorded oxycodone 5 mg tablet 5 mg PO Q4H PRN pain #14 tabs 05/08/21 Allergies Allergy/AdvReac Type Severity Reaction Status Date / Time ibuprofen [From MOTRIN] Allergy Severe ANAPHYLAXIS Verified 07/04/24 17:34 [facility] Past Medical History Medical History HTN (hypertension) Social History Social History Household Members: Significant Other Housing: House Do you presently have visiting nurse or other home services: No Alcohol intake: former Patient Tobacco Use Status: Current everyday Tobacco user Tobacco use type: Cigarette and Cigar Cigarette Packs Per Day: 1 Cigarettes Per Day: 20.0 Substance Use Type: Marijuana Advance Directives: No Advance Directives Information Provided: No service: No Physical Exam 2 Vital Signs: Vital Signs: Last Vital Signs Temp 99.1 F 07/04/24 17:33 Pulse 74 07/04/24 17:33 Resp 16 07/04/24 17:33 BP 114/72 07/04/24 17:33 Pulse Ox 100 07/04/24 17:33 O2 Del Method Room Air 07/04/24 17:33 BMI result Body Mass Index 22.4 Course Course Course Narrative: This is an RME: Additional HPI, ROS, PE not included below will be deferred to primary provider. RME assessment and note performed by: Deanne Marquez PA-C 54 yo male with pmhx of HTN presents to the ED due to L foot pain. States he thinks something might have bit him, or brushed up against him while outside. PE: dorsum of left foot is erythematous, 2+ DP, no edema, no calf tenderness Patient left without completing treatment. Medical Decision Making Lab Data 07/04/24 17:55 07/04/24 17:55 Labs: Lab Results 07/04/24 Range/Units 17:55 WBC 15.4 H (4.8-10.8) X10*3/uL RBC 4.84 D (4.60-5.80) X10*6/uL Hgb 14.9 D (14.0-18.0) g/dl Hct 44.4 D (42.0-52.0) % MCV 91.7 (80.0-98.0) fL MCH 30.8 (27.0-33.0) pg MCHC 33.6 (31.0-36.0) g/dl RDW 13.8 (11.0-16.0) % Plt Count 231 D (160-400) X10*3/uL MPV 11.8 (9.4-12.4) fL Immature Gran % (Auto) 0.5 H (0.0-0.4) % Neut % (Auto) 63.7 (45-73) % Lymph % (Auto) 22.2 (20-40) % [place] % (Auto) 9.0 (2-11) % Eos % (Auto) 3.8 (0-4) % Baso % (Auto) 0.8 (0-2) % Lymph # (Auto) 3.4 (1.2-4.9) X10*3/uL [place] # (Auto) 1.4 H (0.1-1.2) X10*3/uL Eos # (Auto) 0.6 H (0.0-0.4) X10*3/uL Baso # (Auto) 0.1 (0.0-0.2) X10*3/uL Abs Immat Gran (auto) 0.08 H (0.00-0.03) X10*3/uL Absolute Neuts (auto) 9.8 H (2.0-8.3) x10*3/uL Absolute Nucleated RBC 0.000 (0.0-0.012) X10*3/uL Nucleated RBC % (auto) 0.0 (0.0-0.2) /100WBC ESR 28 H (0-15) MM/HR Sodium 142 (135-145) mmol/L Potassium 4.7 (3.3-5.1) mmol/L Chloride 103 (96-108) mmol/L Carbon Dioxide 31 H (22-29) mmol/L Anion Gap 13 (12-20) BUN 12 (9-16) mg/dL Creatinine 0.78 (0.5-1.4) mg/dL Estim Creat Clear Calc 102.1 Estimated GFR > 60 Random Glucose 160 H (60-115) mg/dL Uric Acid 4.8 (3.4-7.0) mg/dL Calcium 10.2 (8.4-10.2) mg/dL Total Bilirubin 0.5 (0.0-1.0) mg/dL AST 12 (5-37) U/L ALT 13 (0-40) U/L Alkaline Phosphatase 61 (39-117) U/L C-Reactive Protein 1.10 H (< or = 0.50) mg/dL Total Protein 8.1 H (6.5-8.0) g/dL Albumin 4.6 (3.5-5.0) g/dL Discharge Plan Discharge Clinical Impression: Foot pain, left Patient Disposition: Left W/O Completing Treatment Prescriptions: No Action cetirizine [Zyrtec] 10 mg Tablet 10 mg PO DAILY oxycodone 5 mg tablet 5 mg PO Q4H PRN (Reason: pain) Qty: 14 0RF Rx Instructions: Patient may request partial fill Discharge Date/Time: 07/04/24 19:25
[2024-07-04 18:01] LABS: MANUAL DIFF FLAG NO
[2024-07-04 18:07] LABS: Basophils Absolute Auto 0.1 X10*3/uL (0.0-0.2); Basophils Percent Auto 0.8 % (0-2); Eosinophils Absolute Auto 0.6 X10*3/uL (0.0-0.4); Eosinophils Percent Auto 3.8 % (0-4); Hematocrit 44.4 % (42.0-52.0); Hemoglobin 14.9 g/dl (14.0-18.0); Imm Gran Abs Auto 0.08 X10*3/uL (0.00-0.03); Imm Gran Pct Auto 0.5 % (0.0-0.4); Lymphocytes Absolute Auto 3.4 X10*3/uL (1.2-4.9); Lymphocytes Percent Auto 22.2 % (20-40); Mean Corpuscular HGB Conc 33.6 g/dl (31.0-36.0); Mean Corpuscular Hemoglobin 30.8 pg (27.0-33.0); Mean Corpuscular Volume 91.7 fL (80.0-98.0); Mean Platelet Volume 11.8 fL (9.4-12.4); Monocytes Absolute Auto 1.4 X10*3/uL (0.1-1.2); Neutrophils Absolute Auto 9.8 x10*3/uL (2.0-8.3); Neutrophils Percent Auto 63.7 % (45-73); Platelet Count 231 X10*3/uL (160-400); Red Blood Count 4.84 X10*6/uL (4.60-5.80); Red Cell Distribution Width 13.8 % (11.0-16.0); White Blood Count 15.4 X10*3/uL (4.8-10.8)
[2024-07-04 18:29] LABS: Alanine Aminotransferase 13 U/L (0-40); Albumin Level 4.6 g/dL (3.5-5.0); Alkaline Phosphatase 61 U/L (39-117); Anion Gap 13 (12-20); Aspartate Amino Transferase 12 U/L (5-37); Bilirubin Total 0.5 mg/dL (0.0-1.0); Blood Urea Nitrogen 12 mg/dL (9-16); Calcium 10.2 mg/dL (8.4-10.2); Carbon Dioxide 31 mmol/L (22-29); Chloride 103 mmol/L (96-108); Creatinine Clr Calc Pharmacy 102.1; Estimated Glomerular Filt Rate > 60; Glucose Random 160 mg/dL (60-115); Potassium 4.7 mmol/L (3.3-5.1); Sodium 142 mmol/L (135-145); Total Protein 8.1 g/dL (6.5-8.0)
[2024-07-04 18:30] LABS: Uric Acid 4.8 mg/dL (3.4-7.0)
[2024-07-04 18:53] LABS: Erythrocyte Sedimentation Rate 28 MM/HR (0-15)
== END 2024-07-04 19:25 | disposition left against medical advice (07) ==
PROVIDERS: Emergency Provider Emergency Medicine
DX: R60.0 Localized edema (principal); M79.672 Pain in left foot; F17.210 Nicotine dependence, cigarettes, uncomplicated; Z79.899 Other long term (current) drug therapy
CPT/HCPCS: 36415; 80053; 84550; 85025; 85652; 86140; 99281; 99283